=== PATIENT | male | born 1960 | race African-American/Black ===

== ENCOUNTER 2017-04-24 06:54 | Inpatient (IN) | payer BC ==
--- NOTE | 2017-04-15 19:40 | HP ---
HISTORY AND PHYSICAL: DATE OF SURGERY: 04/24/17 DATE OF OFFICE VISIT: 04/14/17 SURGEON: Dr. Mayela Xie * (DICTATED BY EMILY MATA) PROCEDURE: Right total knee arthroplasty. CHIEF COMPLAINT: Right knee pain. HISTORY OF PRESENT ILLNESS: Mr. Freeman is a 56-year-old gentleman with complaints of right knee pain secondary to severe degenerative osteoarthritis. He has failed conservative management and has elected to proceed with a right total knee arthroplasty. The procedure is scheduled for 04/24/[address] Xie. PAST MEDICAL HISTORY: Hypertension, hyperlipidemia, diabetes, coronary artery disease, history of an LA and chronic kidney disease. PAST SURGICAL HISTORY: Stent placement in 2014, right knee surgery x2, left knee surgery, right elbow surgery, bilateral shoulder arthroscopies. CURRENT MEDICATIONS: 1. Hydrochlorothiazide 25 mg daily. 2. Lisinopril 20 mg daily. 3. Cialis 20 mg as needed. 4. Cosopt. 5. Glucotrol 10 mg twice daily. 6. Lantus 100 units 40 units every evening. 7. Percocet 10/325 as needed. 8. Aspirin 81 mg daily. 9. Metoprolol 50 mg daily. 10. Nitrostat. 11. Atorvastatin. 12. Calcium 80 mg daily. ALLERGIES: No known drug allergies. FAMILY HISTORY: Heart disease, diabetes, cancer and hypertension. SOCIAL HISTORY: This is a 56-year-old gentleman. He lives with his . He denies the use of drugs. He does not smoke and denies the use of alcohol. REVIEW OF SYSTEMS: A complete 14-point review of systems was reviewed with the patient. It is positive for diabetes. He denies history of DVT, PE, hepatitis C, or HIV. PHYSICAL EXAMINATION GENERAL: He is well developed, well nourished, in no acute distress. VITAL SIGNS: He stands 6 feet 2 inches tall, weighs 250 pounds. His blood pressure is 140/90. His heart rate is 64. HEENT: Normocephalic, atraumatic. NECK: Supple. No palpable lymph nodes. CARDIO: Regular rate and rhythm. Strong S1 and S2. ABDOMEN: Soft, nontender, nondistended. NEUROLOGIC: Alert and oriented x3. Cranial nerves II through XII are intact. MUSCULOSKELETAL: Right lower extremity, the skin is intact. There are no open wounds or abrasions. There is a moderate joint effusion tenderness over the medial and lateral joint lines. 10 to 120 degrees of flexion, 20 degrees of valgus deformities. 2+ dorsalis pedis pulses and intact sensation in the lower extremity. Muscular strength is intact at 5/5. ASSESSMENT AND PLAN: Mr. Freeman is a 56-year-old gentleman with severe degenerative osteoarthritis of the right knee joint. He has failed conservative management and has elected to proceed with the right total knee arthroplasty which is scheduled for 04/24/[address] Xie discussed the risks and benefits of the surgery at today's visit and all of his questions were answered. Coumadin, Colace and Percocet were sent to his pharmacy for postoperative pain control and DVT prophylaxis. EMILY MATA [id number]/[facility] #: [id number] MTDD
[~2017-04-24 06:54] MED LIST: Buffered Lidocaine 0.9% SYRIN* 5 ML/SYR SYRINGE INTRADERM ONE; DiMENhydriNATE IV* 50 MG/ML VIAL IV PUSH PRN; Famotidine IV* 10 MG/ML 2 ML (20 mg) IV ONE; Metoclopramide TAB* 10 MG PO ONE; Morphine INJ* 2 MG/ML 1 ML CARPUJECT IV PRN; PROCHLORPERAZINE INJ 5 MG/ML 2 ML VIAL IV PRN; Scopolamine 1.5 mg* PATCH TRANSDERM PRN; fentaNYL* 50 MCG/ML 2 ML VIAL (100 MCG VIAL) IV PRN; oxyCODONE/Acetamin 5/325 MG* TAB PO PRN
[2017-04-24] MEDS ORDERED: ceFAZolin 2 GM PREMIX (*) 2 GM/50 ML BAG IVPB ONE (07:10)
[2017-04-24] MEDS ORDERED: Famotidine IV* 10 MG/ML 2 ML (20 mg) ONE (07:10)
[2017-04-24] MEDS ORDERED: Buffered Lidocaine 0.9% SYRIN* 5 ML/SYR SYRINGE ONE (07:10)
[2017-04-24] MEDS ORDERED: Midazolam* 1 MG/ML 10 ML VIAL (10 MG) ONE (07:26)
[2017-04-24] MEDS ORDERED: fentaNYL* 50 MCG/ML 2 ML VIAL (100 MCG VIAL) ONE (07:26)
[2017-04-24] MEDS ORDERED: KETAMINE HCL* 50 MG/ML 10 ML VIAL ONE (07:26)
[2017-04-24] MEDS ORDERED: Bupivacaine 0.5% SDV PF* 30 ML VIAL ONE ×2 (07:53→11:04)
[2017-04-24] MEDS ORDERED: Acetaminophen TAB* 325 MG PO PRN (08:16)
[2017-04-24] MEDS ORDERED: Polyethylene Glycol 3350* 17 GM PACKET PO PRN (08:16)
[2017-04-24] MEDS ORDERED: Magnesium Hydroxide LIQ* 30 ML UDC PO PRN (08:16)
[2017-04-24] MEDS ORDERED: Bisacodyl SUPP* 10 MG SUPP PR PRN (08:16)
[2017-04-24] MEDS ORDERED: glipiZIDE TAB* 5 MG PO SCH (09:00)
[2017-04-24] MEDS ORDERED: Dorzolamide/Timolol OPTH (NF) 10 ML BOT BOTH EYES SCH (09:00)
[2017-04-24] MEDS ORDERED: LISINOPRIL PO SCH (09:00)
[2017-04-24] MEDS ORDERED: Hydrochlorothiazide TAB* 25 MG PO SCH (09:00)
[2017-04-24] MEDS ORDERED: ceFAZolin 1 GM VIAL(*) 1 GM in NS 0.9% 50 ML* 50 ML IVPB SCH (09:00)
[2017-04-24] MEDS ORDERED: Brimonidine P 0.15%(NF) OPH SOL 5 ML BTL BOTH EYES SCH (09:00)
[2017-04-24] MEDS ORDERED: EPHEDrine (Pressors)* 50 MG/ML VIAL IV PUSH PRN (09:05)
[2017-04-24] MEDS ORDERED: Ondansetron INJ* 2 MG/ML VIAL IV PRN ×2 (09:05→12:54)
[2017-04-24] MEDS ORDERED: oxyCODONE/Acetamin 5/325 MG* TAB PO PRN ×2 (09:05→12:54)
[2017-04-24] MEDS ORDERED: PROCHLORPERAZINE INJ 5 MG/ML 2 ML VIAL IV PRN ×2 (09:05→12:54)
[2017-04-24] MEDS ORDERED: Nalbuphine* 20 MG/ML 1 ML VIAL IV PRN ×2 (09:05→12:54)
[2017-04-24] MEDS ORDERED: diPHENhydraMINE IV* 50 MG/ML 1 ml VIAL (BENADRYL) IV PRN ×2 (09:05→12:54)
[2017-04-24] MEDS ORDERED: Naloxone* 2 MG in NS 0.9% 250 ML* 250 ML IV PRN (09:05)
[2017-04-24] MEDS ORDERED: Ropivacaine 0.2% EPIDURAL* 200 MG/100 ML BAG EPIDURAL ONE (09:28)
[2017-04-24] MEDS ORDERED: Ropivacaine 0.2% EPIDURAL* 200 MG/100 ML BAG EPIDURAL SCH (10:00)
[2017-04-24] MEDS ORDERED: Flumazenil* 0.1 MG/ML 5 ML MDV ONE (11:03)
[2017-04-24] MEDS ORDERED: Lidocaine 2% PF* 10 ML AMP ONE (11:04)
[2017-04-24] MEDS ORDERED: Propofol* 500 MG/50 ML BTL ONE (11:04)
[2017-04-24] MEDS ORDERED: Phenylephrine INJ* 10 MG/ML 1 ML VIAL (10 MG) ONE (11:04)
[2017-04-24] MEDS ORDERED: Dextrose 50% Syringe 50 ML* 25 GM/50 ML SYRINGE IV PUSH PRN (11:35)
[2017-04-24] MEDS ORDERED: Morphine PF AMP (0.5MG/ML)* 5 MG/10 ML AMP ONE (12:07)
--- NOTE | 2017-04-24 12:36 | RAD ---
INDICATION: Status post right knee arthroplasty COMPARISON: Preoperative right knee radiograph February 20, 2017 TECHNIQUE: 2 view radiograph of the right knee. FINDINGS: AP and lateral views show the right knee prosthesis to be anatomically aligned. There is no evidence of periprosthetic fracture. Expected post surgical changes include subcutaneous care and a small joint effusion. IMPRESSION: Anatomic alignment of recently installed right knee prosthesis.
[2017-04-24] MEDS ORDERED: Naloxone* 0.4 MG/ML 1 ML VIAL IV PRN (12:54)
[2017-04-24] MEDS: Docusate CAP* 100 MG PO SCH ×2 (14:30→21:42)
[2017-04-24] MEDS: Metoprolol Succinate XL TAB* 25 MG PO SCH (14:31)
[2017-04-24] MEDS ORDERED: Warfarin TAB(*) 6 MG PO ONE (17:00)
[2017-04-24] MEDS: ceFAZolin 1 GM VIAL(*) 1 GM in NS 0.9% 50 ML* 50 ML IVPB SCH (17:42)
[2017-04-24] MEDS: Atorvastatin* 80 MG TAB PO SCH (17:45)
[2017-04-24] MEDS: Insulin LISPRO* 1 UNITS UNIT SUBCUT SCH (17:48)
[2017-04-24] MEDS: Latanoprost 0.005%* 2.5 ml BTL BOTH EYES SCH (19:46)
--- NOTE | 2017-04-24 19:46 | CONS ---
CC: Dr. Ford; Dr. Xie * CONSULTATION REPORT: DATE OF CONSULT: 04/24/17 PRIMARY CARE PROVIDER: Dr. Ford. REQUESTING PHYSICIAN FOR THE CONSULTATION: Dr. Xie. MY ATTENDING PHYSICIAN WHILE IN THE HOSPITAL: Clifford Arthur MD (report dictated by Raciel Ortiz NP). REASON FOR MEDICAL CONSULTATION: Evaluation and medical management of comorbid medical conditions. HISTORY OF PRESENT ILLNESS: Mr. Freeman is a 56-year-old male patient who presents to Dr. Xie's service today for a total knee replacement. I will refer you to the H and P for further details. In short, Mr. Freeman is a 56-year -old male patient. He has a history of hypertension, hyperlipidemia, diabetes, CAD, history of MT, and history of CKD, who has been dealing with knee pain for some time, sought care with Dr. Xie, failed conservative therapy. It was felt that he would be appropriate for a total knee replacement. The patient underwent perioperative risk stratification with his PCP and Cardiology and he underwent the procedure today. Because of his medical complexity, we were asked to evaluate in consult to help with medical management. He denies having any chest pain, denies having any shortness of breath, denies having any abdominal pain. He was evaluated in the PACU. He says he is feeling well. He says he cannot move his legs just yet. He did have a Duramorph spinal and he has an epidural now, but he says his pain is well controlled and he says he is feeling well. PAST MEDICAL HISTORY: Significant for: 1. Hypertension. 2. Hyperlipidemia. 3. Diabetes. 4. CAD. 5. History of MT. 6. CKD. PAST SURGICAL HISTORY: 1. He has had heart catheterization. Looks like he has had 2 of these. 2. He just had a right total knee replacement done today. He has had right knee arthroscopies and left knee arthroscopy. He has had right elbow surgery and he has had bilateral shoulder arthroscopies. HOME MEDICATIONS: According to his preop list include: 1. Percocet 1 tablet p.o. t.i.d. as needed. 2. Glipizide 10 mg p.o. b.i.d. 3. Toprol-XL 50 mg in the morning. 4. Lisinopril 20 mg daily. 5. Latanoprost 1 drop both eyes at bedtime. 6. Insulin lantus 50 units subcu at bedtime. 7. Hydrochlorothiazide 25 mg p.o. daily. 8. Cosopt 1 drop both eyes b.i.d. 9. Alphagan 1 drop both eyes b.i.d. 10. Lipitor 80 mg daily at bedtime. 11. Aspirin 81 mg daily. ALLERGIES TO MEDICATIONS: No known drug allergies. FAMILY HISTORY: Mother had a history of hypertension, diabetes and coronary artery disease. Father, history was reviewed. The father does not have any history of heart disease or diabetes. Essentially noncontributory. SOCIAL HISTORY: He does not smoke, does not drink. Surrogate decision maker is his . He is . REVIEW OF SYSTEMS: There is no documented fever. He denied having any significant weight change. There was no double vision. There is no ear discharge. He denied having any rhinorrhea. No sore throat. No thyroid enlargement. Denied having any chest pain. There was no orthopnea. There is no nocturnal dyspnea. He denies having any nausea. There is no dysuria. Denies having any frequency. No seizure. No loss of consciousness. No pruritus and no skin ulcerations. Review of 14 systems completed, all others negative. PHYSICAL EXAM: Vital Signs: Blood pressure 147/89, pulse 52, respirations 14, O2 sat 100%, temperature 98.4. General: At this time, Mr. Freeman is a 56-year -old male patient. He is sitting in the PACU bed. He does not appear to be in any acute distress. HEENT: Head is atraumatic, normocephalic. Eyes: EOMs are intact. Sclerae anicteric, not pale. Neck: Supple. Throat: Oral mucosa appears to be moist. No oropharyngeal erythema. Heart: Sounds S1 and S2. He is a little bradycardic in the 50s. No murmurs, rubs or gallops. Lungs: Clear to auscultation bilaterally. No wheezes, rales or rhonchi. Abdomen: Soft, flat, nontender. Hypoactive bowel sounds. Extremities: Pulses were 2+ throughout. Cannot move the lower extremities given the recent Duramorph spinal , but CSM checks are intact. He is moving the upper extremities with 5/5 strength. Neurologically, he is awake, alert, oriented x3. Tongue midline. Hostess Cashier were equal. No gross focal deficits. Skin: Intact with the exception he does have an incision to the right knee which is covered with an Kiko dressing. It is clean, dry and intact. No drain was noted. DIAGNOSTIC STUDIES/LAB DATA: Preop, WBC of 5.8, RBC of 4.67, hemoglobin of 12.6 , hematocrit of 39, platelet count 181,000. Sodium 136, potassium 4.5, chloride 102, bicarb 30, BUN 27, his creatinine is 1.37 that is right near his baseline. His glucose is 152. His A1c was 7.6 checked 2 years ago in our system. AST was 30, ALT 29. Urine preop negative. He did have a preop EKG which showed a sinus rhythm with a first-degree AV block, rate of 61. He did have T-wave inversions in leads I, II and aVL and also inversions in V4, 5, 6 and in reviewing the previous EKG, these T-wave inversions appear to be similar. He did have a chest x-ray preop, showed no evidence of active cardiopulmonary disease. Old medical records were reviewed. ASSESSMENT AND PLAN: Mr. Freeman is a 56-year-old male patient with multiple medical problems, coming to Orthopedic Surgery today for an elective total knee replacement. We were asked to evaluate. Recommendations at this point are: 1. Status post total knee replacement. I will defer the management to Dr. Xie and her team. 2. Hypertension. I would continue his beta josie. We will hold his lisinopril and hydrochlorothiazide. When the epidural is removed, consider restarting these. 3. Hyperlipidemia. Continue statin therapy. 4. Diabetes. I will put him on Lantus and lispro sliding scale. We will follow. His postop blood sugar was in the 70s, but he took a full dose of insulin last night, so we will monitor this. 5. Coronary artery disease. I would recommend getting him back on the aspirin as soon as it is deemed safe by Orthopedics. He is on the beta-josie and the statin. We will continue these medications. 6. History of chronic kidney disease. We will follow the creatinine. He is getting a BMP tomorrow. 7. DVT prophylaxis. I will defer to the primary team. 8. Fluids, nutrition. I would recommend a consistent carb diet. 9. Code status. Full code. TIME SPENT: Time spent on the consult was 60 minutes, greater than half the time was spent face to face with the patient obtaining my history and physical, the other half of the time was spent on going over the plan of care with the patient and implementing the plan of care. I did discuss the plan of care with my attending, Dr. Arthur, he is in agreement. RACIEL ORTIZ, BOTTLE LABELER [id number]/[facility] #: [id number] BRIGITTE
--- NOTE | 2017-04-24 20:46 | RAD ---
INDICATION: Fever COMPARISON: April 11, 2017 TECHNIQUE: An AP portable view obtained at 2032 hours is submitted. FINDINGS: Bones/Soft Tissues: There are no acute bony findings. Cardiomediastinal: The cardiomediastinal silhouette is normal. Lungs: There are no infiltrates. There are chronic interstitial changes. Pleura: There are no pleural effusions. Other: None IMPRESSION: NO ACTIVE DISEASE.
[2017-04-24] MEDS: Insulin GLARGINE(*) 1 UNITS UNIT SUBCUT SCH (21:44)
[2017-04-24] MEDS: PTO: Brimonidine P 0.15%(NF) OPH SOL 5 ML BTL BOTH EYES SCH (21:47)
[2017-04-24] MEDS: PTO: Dorzolamide/Timolol OPTH (NF) 10 ML BOT BOTH EYES SCH (21:47)
[2017-04-24 22:48] LABS: Urine Bacteria Absent (Absent); Urine Bilirubin Negative (Negative); Urine Glucose Negative (Negative); Urine Nitrite Negative (Negative)
[2017-04-25] MEDS: ceFAZolin 1 GM VIAL(*) 1 GM in NS 0.9% 50 ML* 50 ML IVPB SCH ×2 (00:50→08:00)
[2017-04-25] MEDS ORDERED: oxyCODONE/Acetamin 5/325 MG* TAB PO PRN (05:15)
[2017-04-25] MEDS: oxyCODONE/Acetamin 5/325 MG* TAB PO PRN ×5 (05:18→23:30)
[2017-04-25 05:39] LABS: Hematocrit 33 % (42-52); Hemoglobin 10.8 g/dl (14.0-18.0)
[2017-04-25 05:45] LABS: BUN/Creatinine Ratio 14.9 (8-20); Calcium 8.3 mg/dL (8.6-10.3); EGFR African American 80.1 (>60); EGFR Non-African American 62.3 (>60); Potassium 3.7 mmol/L (3.5-5.0)
[2017-04-25] MEDS ORDERED: Morphine INJ* 2 MG/ML 1 ML SYRINGE (TWO MG - NEW SYRINGE VERSION) IV PRN (05:55)
[2017-04-25] MEDS ORDERED: Morphine INJ* 2 MG/ML 1 ML CARPUJECT IV PRN (06:00)
[2017-04-25] MEDS ORDERED: oxyCODONE TAB* 5 MG TAB PO PRN (06:00)
[2017-04-25] MEDS ORDERED: Ondansetron INJ* 2 MG/ML VIAL IV PRN (06:00)
[2017-04-25] MEDS ORDERED: diPHENhydraMINE IV* 50 MG/ML 1 ml VIAL (BENADRYL) IV PRN (06:00)
[2017-04-25] MEDS ORDERED: Ondansetron TAB* 4 MG PO PRN (06:00)
[2017-04-25] MEDS: HYDROmorphone INJ* 1 MG/ML CARPUJECT SYRINGE IV PRN ×6 (06:43→23:31)
[2017-04-25] MEDS: Insulin LISPRO* 1 UNITS UNIT SUBCUT SCH ×3 (07:38→17:29)
[2017-04-25] MEDS: Metoprolol Succinate XL TAB* 25 MG PO SCH (07:56)
[2017-04-25] MEDS: Docusate CAP* 100 MG PO SCH ×2 (07:57→21:28)
[2017-04-25] MEDS: Morphine TAB Extended Release (*) 15 MG TAB.ER PO SCH ×2 (07:57→22:09)
[2017-04-25] MEDS: PTO: Brimonidine P 0.15%(NF) OPH SOL 5 ML BTL BOTH EYES SCH ×2 (07:58→23:58)
[2017-04-25] MEDS: PTO: Dorzolamide/Timolol OPTH (NF) 10 ML BOT BOTH EYES SCH ×2 (08:00→23:58)
[2017-04-25] MEDS: Lisinopril TAB* 10 MG PO SCH (08:27)
[2017-04-25] MEDS: Cyclobenzaprine TAB* 10 MG PO PRN ×2 (08:27→16:31)
[2017-04-25] MEDS: Enoxaparin(*) 40 MG/0.4 ML SYR SUBCUT SCH (09:25)
--- NOTE | 2017-04-25 12:01 | PN ---
Progress Note - Progress Note Date of Service: 04/25/17 SOAP: Subjective: 56 y/o male s/p R TKA 04/[address] Xie. Patient sleeping in bed, no complaints, no questions. VSS afebrile. Objective: General= Well appearing, NAD, tired appearing MSK- Surgical dressing intact, no drain, no odor, drainage, + DF/PF b/l, sensation intact to light touch b/l LEs, no edema b/l, PT 2+ b/l Vital Signs Temp 98.3 F 04/25/17 07:40 Pulse 75 04/25/17 07:40 Resp 16 04/25/17 11:34 BP 170/77 04/25/17 07:40 Pulse Ox 99 04/25/17 07:40 Intake & Output 04/24/17 04/25/17 04/25/17 18:59 06:59 18:59 Intake Total 3100 1900 500 Output Total 3850 1875 375 Balance -750 25 125 Weight 115.666 kg Intake: IV Fluids 2500 980 LR 2450 980 NS 50ML, Cefazolin 2G 50 IVPB 50 cefazolin 50 Oral 600 870 500 Output: Urine 1500 375 [place] 3850 375 Assessment: Stable 56 y/o male s/p R TKA 04/[address] Xie. Plan: - Pain control- ER medication added today, continue to have flexeril, oxycodone PRN with IV for breakthrough. Patient resting well, pain minimal on examination. - DVT prophylaxis- coumadin 6mg tonight, continue lovenox. - Continue PT/ OT over weekend - Likely D/C to home over weekend Active Medications Generic Name Dose Route Start Last Admin Trade Name Freq PRN Reason Stop Dose Admin Acetaminophen 650 mg 04/24/17 08:16 04/24/17 20:32 Tylenol Tab* PO 650 mg Q4H PRN Administration PAIN OR TEMPERATURE Atorvastatin Calcium 80 mg 04/24/17 18:00 04/24/17 17:45 Lipitor* PO 80 mg QPM ADDIS Administration Bisacodyl 10 mg 04/24/17 08:16 Dulcolax Supp* AL DAILY PRN constipation Brimonidine Tartrate 1 drop 04/24/17 14:35 04/25/17 07:58 Alphagan P 0.15%(Nf) BOTH EYES 1 drop BID ADDIS Administration Cyclobenzaprine HCl 10 mg 04/25/17 07:34 04/25/17 08:27 Flexeril Tab* PO 10 mg TID PRN Administration SPASMS - MUSCLE Dextrose 12.5 gm 04/24/17 11:35 D50w Syringe 50 Ml* IV PUSH .FOR FS < 60 - SS PRN FS < 60 Diphenhydramine HCl 12.5 mg 04/25/17 06:00 Benadryl Iv* IV Q6H PRN PRURITIS Docusate Sodium 100 mg 04/24/17 09:00 04/25/17 07:57 Colace Cap* PO 100 mg BID ADDIS Administration Dorzolamide/Timolol 1 drop 04/24/17 21:00 04/25/17 08:00 Cosopt (Nf) BOTH EYES 1 drop BID ADDIS Administration Protocol Enoxaparin Sodium 40 mg 04/25/17 10:00 04/25/17 09:25 Lovenox(*) SUBCUT 40 mg Q24H ADDIS Administration Hydromorphone HCl 1 mg 04/25/17 06:38 04/25/17 10:10 Dilaudid Injic* IV 1 mg Q2H PRN Administration PAIN Lactated Ringer's 1,000 mls @ 100 mls/hr 04/24/17 09:00 04/25/17 00:45 Lactated Ringers 1000 Ml Bag* IV 100 mls/hr PER RATE ADDIS Administration Insulin Glargine 50 units 04/24/17 21:00 04/24/17 21:44 Lantus(*) SUBCUT 50 units BEDTIME [facility] Administration Insulin Human Lispro 0 units 04/24/17 16:30 04/25/17 07:38 Humalog* SUBCUT Not Given AC [facility] Protocol Lactulose 30 ml 04/24/17 08:16 Lactulose* PO Q6H PRN constipation Latanoprost 1 drop 04/24/17 18:00 04/24/17 19:46 Xalatan 0.005%* BOTH EYES Not Given QPM ADDIS Lisinopril 20 mg 04/25/17 09:00 04/25/17 08:27 Prinivil Tab* PO 20 mg DAILY ADDIS Administration Magnesium Hydroxide 30 ml 04/24/17 08:16 Milk Of Magnesia Liq* PO Q6H PRN constipation Metoprolol Succinate 50 mg 04/24/17 09:00 04/25/17 07:56 Toprol Xl Tab* PO 50 mg QAM ADDIS Administration Morphine Sulfate 15 mg 04/25/17 09:00 04/25/17 07:57 Ms Contin(*) PO 15 mg BID ADDIS Administration Ondansetron HCl 4 mg 04/25/17 06:00 Zofran Inj* IV Q6H PRN nausea Ondansetron HCl 4 mg 04/25/17 06:00 Zofran Tab* PO Q6H PRN NAUSEA Oxycodone HCl 10 mg 04/25/17 06:00 Roxycodone Tab* PO Q4H PRN SEVERE PAIN Oxycodone/Acetaminophen 1 tab 04/25/17 05:15 Percocet 5/325 Tab* PO Q4H PRN PAIN Oxycodone/Acetaminophen 2 tab 04/25/17 05:15 04/25/17 09:24 Percocet 5/325 Tab* PO 2 tab Q4H PRN Administration PAIN Pharmacy Profile Note 0 note 04/24/17 17:00 04/24/17 17:59 Coumadin Daily Reminder* FOLLOW UP 1 note 1700 ADDIS Administration Polyethylene Glycol/Electrolytes 17 gm 04/24/17 08:16 Miralax* PO DAILY PRN Constipation
--- NOTE | 2017-04-25 13:38 | OP ---
OPERATIVE REPORT: DATE OF OPERATION: 04/24/17 DATE OF : 62 ATTENDING SURGEON: Mayela Xie MD. EMERY GRINDER: EMILY Milligan. Ms. Melgoza did help throughout the procedure with preparation of the leg, wound retraction, manipula tion of the knee and wound closure. ANESTHESIOLOGIST: Dr. Alaniz. ANESTHESIA: Spinal. 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 POST-OPERATIVE DIAGNOSIS: Severe endstage posttraumatic arthritis of the right knee joint with valgu s deformity. OPERATIVE PROCEDURE: Right total knee arthroplasty. HARDWARE USED: This is cemented Perez [employer]hew total knee arthroplasty hardware. For the femur, a size 6 right posterior stabilized Oxinium component. For the tibia, a size 5 right tibial baseplate Gisell II. For the insert, a 9-mm posterior stabilized articular insert size 5/6 and for the patell a a size 35, 3-peg hole poly patella. TOURNIQUET TIME: 63 minutes. ESTIMATED BLOOD LOSS: 200 cc. COMPLICATIONS: None. SPECIMEN: Multiple cultures swabs sent for cultures and sensitivities. Bone and cartilage from the right knee joint sent to pathology. BRIEF HISTORY/INDICATIONS: Mr. Freeman is a 36-year-old gentleman with years of increasingly severe r ight knee pain and valgus deformity. He has had several surgeries in the distant past for sports rel ated injury. He developed posttraumatic arthritis, which is quite severe. Radiograph showed lateral bone-on- bone contact. He developed approximately 15 degrees valgus deformity and knee stiffness wi th pain. He failed conservative treatment with antiinflammatories, pain medication, intraarticular i njections, and physical therapy. Due to decreased quality of life and continued pain, he elected to have right total knee arthroplasty. Informed consent was obtained from the patient. He understood t he risks of the procedure included but were not limited to bleeding, infection, damage to nearby stru ctures, continued pain, need for further surgery, intraoperative fracture, nerve palsy, hardware fail ure or loosening, knee stiffness, loss of motion, stroke, heart attack, blood clot, and . He wi shed to proceed. INTRAOPERATIVE FINDINGS: Intraoperatively the patient was noted to have 15 degree of valgus deformit y and knee range motion from 10 to 120 degrees of flexion. This was corrected to full extension, to 130 degrees of flexion, and 5-degree valgus by the end of the case. He was noted to have severe ends tage arthritis. He did have some lateral femoral condylar hypoplasia. DESCRIPTION OF PROCEDURE: Mr. Freeman was identified in the preanesthesia unit. His right lower extre mity was marked as the correct operative site. Informed consent was signed and placed in the chart. The patient was taken to the operating room, placed under spinal anesthesia. A Machado catheter was p laced. Tourniquet was placed on the right thigh. The right lower extremity was prepped and draped i n the usual sterile fashion. Preoperative timeout was made to correctly identify the patient, side, and site. Appropriate perioperative antibiotics was given within 1 hour of incision. Tourniquet was inflated and total tourniquet time for this procedure was 63 minutes. A 15-cm midline skin incision was made with a 10 blade and carried down to the extensor mechanism. The patient's nolasco perficial patellar bone calcification or enthesophyte was carefully removed using a rongeur. A new 1 0 blade was used to make a standard medial parapatellar arthrotomy. The patella was subluxed lateral ly. Electrocautery was used to elevate the soft tissue off the superomedial tibia. The knee was fle xed up. Anterior horn of the lateral meniscus and ACL was sharply released. A drill was used to ent er the distal femur. Intramedullary distal femoral cutting guide was pinned on the distal femur. Os cillating saw was used to make the appropriate distal femoral cut. Next, the external rotation guide was pinned on the distal femur and the distal femur was sized to size 6. A size 6 multicutting jig was pinned on the distal femur. Appropriate 4 chamfer cuts were made with an oscillating saw. The b henna fragments were carefully removed. PCL was completely released. Extramedullary tibial cutting guide was pinned on the proximal tibia. Oscillating saw was used to ma ke the proximal tibial cut perpendicular to the mechanical axis of the tibia. The bony fragment was carefully removed. The knee was brought out into full extension. A spacer block had good fit with m edial and lateral ligamentous balancing satisfactorily. Flexion and extension gaps were well balance d. The knee was flexed up. Lamina preschool teacher aide was placed both medially and laterally. Any remaining menisc us was carefully removed from the medial and lateral compartments. Curved osteotome was used to tiki beba the osteophytes along the posterior femur. Tibial tray and drop mariana were placed to ensure once a gain a satisfactory tibial cut. This was confirmed. A size 6 right femoral trial was impacted on to the distal femur and had excellent fit. The box for the posterior stabilized implant was prepared u sing a reamer and box cut osteotome. A size 6 tibial tray trial and 9 mm insert trial was chosen and placed. The knee was taken through a range of motion. The knee has full extension to 130 degrees o f flexion. There was good patellofemoral tracking. The patella was everted; 9 mm of patellar bone and cartilage were carefully removed with an oscillati ng saw. Patella was sized to a size 35. Three peg holes were drilled through the size 35 guide. A trial 35 patella was placed and the knee was taken through range of motion. The knee had good patell ofemoral tracking. All trials were carefully removed. The tibia was subluxed anteriorly and sized to a size 5. Proxima l tibia was prepared using a size 5 keel punch. All bony cut surfaces were copiously irrigated with sterile saline and dried. Final implants were cemented into place starting with the tibia, followed by the femur and last the patella. A 9 mm insert trial was placed while the knee was brought into fu ll extension. The tourniquet was turned down at 63 minutes. The knee was copiously irrigated with s terile saline. Electrocautery was used to obtain meticulous hemostasis. Once the cement had fully cured, the insert trial was removed. Any excess cement was carefully remov ed from around the capsule and implants. Final implant chosen was a 9 mm posterior stabilizer articu lar insert size 5/6. This was locked into position on the tibial tray. Stability of the insert was checked and rechecked and noted to be stable. The knee was once again copiously irrigated with sterile saline. The extensor mechanism was closed u sing interrupted #1 Vicryl's. The rest of the incision was closed in a layered fashion using 0 and 2 -0 Vicryl's. Skin was closed using running 3-0 nylon suture. Sterile Xeroform, 4x4s, and Webril wer e placed over the incision. Kiko wrap and cold pack were placed over this. The patient's anesthesia was reversed without difficulty. He was taken to the PACU in stable conditi on. Intended weightbearing will be weightbearing as tolerated. Intended DVT prophylaxis will be Coum marian with a Lovenox bridge. [id number]/[facility] #: [id number]
--- NOTE | 2017-04-25 14:13 | PN ---
Subjective Date of Service: 04/25/17 Interval History: Patient says pain is 9/10, but is in no acute distress on exam. No other complaints, urinating without difficulty, passing flatus without BM. No CP, SOB , N/V, F/C, abdominal pain, Dysuria, dizziness, or other pain. Family History: Unchanged from Admission Social History: Unchanged from Admission Past Medical History: Unchanged from Admission Objective Active Medications: Acetaminophen (Tylenol Tab*) 650 mg PO Q4H PRN PRN Reason: PAIN OR TEMPERATURE Last Admin: 04/24/17 20:32 Dose: 650 mg Atorvastatin Calcium (Lipitor*) 80 mg PO QPM [facility] Last Admin: 04/24/17 17:45 Dose: 80 mg Bisacodyl (Dulcolax Supp*) 10 mg [place] DAILY PRN PRN Reason: constipation Brimonidine Tartrate (Alphagan P 0.15%(Nf)) 1 drop BOTH EYES BID [facility] Last Admin: 04/25/17 07:58 Dose: 1 drop Cyclobenzaprine HCl (Flexeril Tab*) 10 mg PO TID PRN PRN Reason: SPASMS - MUSCLE Last Admin: 04/25/17 08:27 Dose: 10 mg Dextrose (D50w Syringe 50 Ml*) 12.5 gm IV PUSH .FOR FS < 60 - SS PRN PRN Reason: FS < 60 Diphenhydramine HCl (Benadryl Iv*) 12.5 mg IV Q6H PRN PRN Reason: PRURITIS Docusate Sodium (Colace Cap*) 100 mg PO BID [facility] Last Admin: 04/25/17 07:57 Dose: 100 mg Dorzolamide/Timolol (Cosopt (Nf)) 1 drop BOTH EYES BID [facility] PRN Reason: Protocol Last Admin: 04/25/17 08:00 Dose: 1 drop Enoxaparin Sodium (Lovenox(*)) 40 mg SUBCUT Q24H [facility] Last Admin: 04/25/17 09:25 Dose: 40 mg Hydromorphone HCl (Dilaudid Injic*) 1 mg IV Q2H PRN PRN Reason: PAIN Last Admin: 04/25/17 10:10 Dose: 1 mg Lactated Ringer's (Lactated Ringers 1000 Ml Bag*) 1,000 mls @ 100 mls/hr IV PER RATE [facility] Last Admin: 04/25/17 00:45 Dose: 100 mls/hr Insulin Glargine (Lantus(*)) 50 units SUBCUT BEDTIME [facility] Last Admin: 04/24/17 21:44 Dose: 50 units Insulin Human Lispro (Humalog*) 0 units SUBCUT AC [facility] PRN Reason: Protocol Last Admin: 04/25/17 12:33 Dose: 2 units Lactulose (Lactulose*) 30 ml PO Q6H PRN PRN Reason: constipation Latanoprost (Xalatan 0.005%*) 1 drop BOTH EYES QPM [facility] Last Admin: 04/24/17 19:46 Dose: Not Given Lisinopril (Prinivil Tab*) 20 mg PO DAILY [facility] Last Admin: 04/25/17 08:27 Dose: 20 mg Magnesium Hydroxide (Milk Of Magnalex Liq*) 30 ml PO Q6H PRN PRN Reason: constipation Metoprolol Succinate (Toprol Xl Tab*) 50 mg PO QAM [facility] Last Admin: 04/25/17 07:56 Dose: 50 mg Morphine Sulfate (Ms Contin(*)) 15 mg PO BID [facility] Last Admin: 04/25/17 07:57 Dose: 15 mg Ondansetron HCl (Zofran Inj*) 4 mg IV Q6H PRN PRN Reason: nausea Ondansetron HCl (Zofran Tab*) 4 mg PO Q6H PRN PRN Reason: NAUSEA Oxycodone HCl (Roxycodone Tab*) 10 mg PO Q4H PRN PRN Reason: SEVERE PAIN Oxycodone/Acetaminophen (Percocet 5/325 Tab*) 1 tab PO Q4H PRN PRN Reason: PAIN Oxycodone/Acetaminophen (Percocet 5/325 Tab*) 2 tab PO Q4H PRN PRN Reason: PAIN Last Admin: 04/25/17 09:24 Dose: 2 tab Pharmacy Profile Note (Coumadin Daily Reminder*) 0 note FOLLOW UP 1700 [facility] Last Admin: 04/24/17 17:59 Dose: 1 note Polyethylene Glycol/Electrolytes (Miralax*) 17 gm PO DAILY PRN PRN Reason: Constipation Warfarin Sodium (Coumadin Tab(*)) 6 mg PO ONCE@1700 ONE PRN Reason: Protocol Stop: 04/25/17 17:01 Vital Signs 1104/24/17 04/24/17 14:12 15:34 16:29 Temperature 98.3 F 98.6 F 98.5 F Pulse Rate 77 66 74 Respiratory 14 16 16 Rate Blood Pressure 110/67 167/70 164/55 (mmHg) O2 Sat by Pulse 100 100 100 Oximetry 04/24/17 04/24/17 04/24/17 18:01 18:10 19:57 Temperature 100.3 F 102.6 F Pulse Rate 81 85 Respiratory 18 17 16 Rate Blood Pressure 158/71 145/59 (mmHg) O2 Sat by Pulse 100 100 Oximetry 04/24/17 04/24/17 04/24/17 20:00 20:16 20:56 Temperature 102.6 F 100.3 F Pulse Rate 85 77 Respiratory 17 16 16 Rate Blood Pressure 145/59 157/68 (mmHg) O2 Sat by Pulse 100 97 Oximetry 04/24/17 04/24/17 04/24/17 21:50 22:00 22:55 Temperature 100.6 F Pulse Rate Respiratory 16 17 Rate Blood Pressure (mmHg) O2 Sat by Pulse Oximetry 04/24/17 04/25/17 04/25/17 23:47 00:00 01:00 Temperature 99.4 F Pulse Rate 68 Respiratory 20 16 20 Rate Blood Pressure 129/60 (mmHg) O2 Sat by Pulse 98 Oximetry 04/25/17 04/25/17 04/25/17 02:03 03:23 03:59 Temperature 99.4 F Pulse Rate 85 Respiratory 20 20 20 Rate Blood Pressure 180/65 (mmHg) O2 Sat by Pulse 99 Oximetry 04/25/17 04/25/17 04/25/17 04:00 04:08 05:06 Temperature Pulse Rate 83 Respiratory 16 20 Rate Blood Pressure 164/70 (mmHg) O2 Sat by Pulse Oximetry 04/25/17 04/25/17 04/25/17 05:18 05:33 05:59 Temperature Pulse Rate Respiratory 16 17 Rate Blood Pressure (mmHg) O2 Sat by Pulse 99 Oximetry 04/25/17 04/25/17 04/25/17 06:00 06:43 07:40 Temperature 98.3 F Pulse Rate 75 Respiratory 22 17 18 Rate Blood Pressure 170/77 (mmHg) O2 Sat by Pulse 99 Oximetry 04/25/17 04/25/17 04/25/17 07:42 07:45 07:57 Temperature Pulse Rate Respiratory 16 16 16 Rate Blood Pressure (mmHg) O2 Sat by Pulse Oximetry 04/25/17 04/25/17 04/25/17 07:58 08:27 09:24 Temperature Pulse Rate Respiratory 16 16 16 Rate Blood Pressure (mmHg) O2 Sat by Pulse Oximetry 04/25/17 04/25/17 04/25/17 10:02 10:07 10:10 Temperature 98.8 F Pulse Rate 68 Respiratory 16 16 16 Rate Blood Pressure 164/81 (mmHg) O2 Sat by Pulse 100 Oximetry 04/25/17 04/25/17 04/25/17 10:21 11:34 11:50 Temperature 98.3 F Pulse Rate 67 Respiratory 20 16 16 Rate Blood Pressure 155/80 (mmHg) O2 Sat by Pulse 100 Oximetry 04/25/17 13:49 Temperature Pulse Rate Respiratory Rate Blood Pressure (mmHg) O2 Sat by Pulse 99 Oximetry Oxygen Devices in Use Now: None Appearance: Patient is a 56yo male who appears states age and is sitting in the bed in [facility]. Eyes: No Scleral Icterus, PERRLA Ears/Nose/Mouth/Throat: NL Teeth, Lips, Gums, Clear Oropharnyx, Mucous Membranes Moist Neck: NL Appearance and Movements; NL JVP, Trachea Midline Respiratory: Symmetrical Chest Expansion and Respiratory Effort, Clear to Auscultation Cardiovascular: NL Sounds; No Murmurs; No JVD, RRR, - - 1+ edema in right leg without calf tenderness. Abdominal: NL Sounds; No Tenderness; No Distention, No Hepatosplenomegaly Lymphatic: No Cervical Adenopathy Extremities: No Clubbing, Cyanosis, - - Right knee covered by bulky dressing and cold pack. Pulses, movement and sensation intact distally and symmetrical. Skin: No Nodules or Sclerosis Neurological: Alert and Oriented x 3, NL Sensation, NL Muscle Strength and Tone Result Diagrams: 04/25/17 05:07 04/25/17 05:07 Microbiology and Other Data: Microbiology 04/24/17 09:00 Gram Stain - Final Knee Right Wound Culture - Preliminary No Growth Day 1 04/24/17 09:00 Anaerobic Culture - Preliminary Body Fluid - Knee Right No Growth Day 1 Assess/Plan/Problems-Billing Assessment: Patient is a 56yo male with a PMH significant for HTN, HLD, CKD, CAD with stent , and DMII who is POD #1 after a RTKA. Patient had no complications and is doing well. - Patient Problems (1) Post-operative state Current Visit: Yes Status: Acute Code(s): Z98.890 - OTHER SPECIFIED POSTPROCEDURAL STATES SNOMED Code(s): 16824280 Comment: POD#1, Urinating and Passing Flatus. Pain moderately well controlled, pain control per primary team. (2) DM (diabetes mellitus) Current Visit: No Status: Acute Priority: Medium Code(s): E11.9 - TYPE 2 DIABETES MELLITUS WITHOUT COMPLICATIONS SNOMED Code(s): 16648736 Comment: cont SSI and Lantus 50u Moderate control Resume home Lantus and Glucotrol at D/C. (3) HTN (hypertension) Current Visit: No Status: Acute Code(s): I10 - ESSENTIAL (PRIMARY) HYPERTENSION SNOMED Code(s): 66166707 Comment: Moderately hypertensive, reintroduced lisinopril and HCTZ. Continue metoprolol (4) S/P cardiac catheterization Current Visit: No Status: Acute Priority: High Onset Date: 04/24/15 Code (s): Z98.89 - OTHER SPECIFIED POSTPROCEDURAL STATES * DO NOT USE * SNOMED Code (s): 67719936389062 Comment: No CP or signs of CHF. Restart ASA on 04/26 (5) Dyslipidemia Current Visit: No Status: Chronic Priority: Medium Code(s): E78.5 - HYPERLIPIDEMIA, UNSPECIFIED SNOMED Code(s): 156442094 Comment: cont lipitor (6) CKD (chronic kidney disease) stage 2, GFR 60-89 ml/min Current Visit: Yes Status: Acute Code(s): N18.2 - CHRONIC KIDNEY DISEASE, STAGE 2 (MILD) SNOMED Code(s): 598791727 Comment: Cret at baseline. Will monitor. (7) Full code status Current Visit: Yes Status: Acute Code(s): Z78.9 - OTHER SPECIFIED HEALTH STATUS SNOMED Code(s): 576219448 (8) DVT prophylaxis Current Visit: No Status: Acute Code(s): ZEX6111 - SNOMED Code(s): 316704166 Comment: SCDs, Lovenox bridge to warfarin per ortho. Status and Disposition: Disposition per primary team, Possible discharge over the weekend.
[2017-04-25] MEDS: Hydrochlorothiazide TAB* 25 MG PO SCH (15:00)
[2017-04-25] MEDS: hydrALAZINE IV* 20 MG/ML VIAL IV SLOW PU PRN (16:38)
[2017-04-25] MEDS ORDERED: Warfarin TAB(*) 6 MG PO ONE (17:00)
[2017-04-25] MEDS: Atorvastatin* 80 MG TAB PO SCH (17:29)
[2017-04-25] MEDS: Latanoprost 0.005%* 2.5 ml BTL BOTH EYES SCH (18:00)
[2017-04-25] MEDS: Morphine TAB Extended Release (*) 30 MG TAB.ER PO SCH (21:28)
[2017-04-25] MEDS: Insulin GLARGINE(*) 1 UNITS UNIT SUBCUT SCH (21:30)
[2017-04-26] MEDS: hydrALAZINE IV* 20 MG/ML VIAL IV SLOW PU PRN (00:11)
[2017-04-26] MEDS: oxyCODONE/Acetamin 5/325 MG* TAB PO PRN ×5 (03:51→20:17)
[2017-04-26] MEDS: HYDROmorphone INJ* 1 MG/ML CARPUJECT SYRINGE IV PRN (04:20)
[2017-04-26 05:31] LABS: Hematocrit 32 % (42-52); Hemoglobin 10.8 g/dl (14.0-18.0); Mean Platelet Volume 9 um3 (7.4-10.4)
[2017-04-26 05:47] LABS: BUN/Creatinine Ratio 12.4 (8-20); Calcium 8.7 mg/dL (8.6-10.3); EGFR African American 86.6 (>60); EGFR Non-African American 67.4 (>60); Potassium 3.2 mmol/L (3.5-5.0)
[2017-04-26] MEDS ORDERED: Potassium Chlor TAB* 20 MEQ TAB.ER PO ONE (07:15)
[2017-04-26] MEDS: Cyclobenzaprine TAB* 10 MG PO PRN ×2 (08:03→18:17)
[2017-04-26] MEDS: Insulin LISPRO* 1 UNITS UNIT SUBCUT SCH ×3 (08:29→16:59)
[2017-04-26] MEDS: Docusate CAP* 100 MG PO SCH ×2 (08:53→22:08)
[2017-04-26] MEDS: Hydrochlorothiazide TAB* 25 MG PO SCH (08:53)
[2017-04-26] MEDS: Lisinopril TAB* 10 MG PO SCH (08:53)
[2017-04-26] MEDS: Aspirin EC Low Dose* 81 MG TAB.EC PO SCH (08:53)
[2017-04-26] MEDS: Metoprolol Succinate XL TAB* 25 MG PO SCH (08:53)
[2017-04-26] MEDS: Morphine TAB Extended Release (*) 30 MG TAB.ER PO SCH ×2 (08:54→22:07)
[2017-04-26] MEDS: PTO: Brimonidine P 0.15%(NF) OPH SOL 5 ML BTL BOTH EYES SCH ×2 (08:56→22:06)
[2017-04-26] MEDS: Potassium Chlor TAB* 20 MEQ TAB.ER PO SCH ×2 (09:01→22:07)
--- NOTE | 2017-04-26 09:01 | PN ---
Progress Note - Progress Note Date of Service: 04/26/17 SOAP: Subjective: Pt. is alert, c/o moderate pain. Objective: RLE - dressing changed, inc c/d/i. mod effusion. calf soft. nvi. Vital Signs: Temp Pulse Resp BP Pulse Ox 99.5 F 82 18 163/80 97 04/26/17 07:30 04/26/17 07:30 04/26/17 08:54 04/26/17 07:30 04/26/17 07:30 Laboratory Results - last 24 hr 04/25/17 04/25/17 04/25/17 11:36 16:28 21:10 Hgb Hct Plt Count MPV INR (Anticoag Therapy) Sodium Potassium Chloride Carbon Dioxide Anion Gap BUN Creatinine Est GFR ( Amer) Est GFR (Non-Af Amer) BUN/Creatinine Ratio Glucose POC Glucose (mg/dL) 144 H 134 H 162 H Calcium 04/26/17 04/26/17 04/26/17 04:49 04:49 04:49 Hgb 10.8 L Hct 32 L Plt Count 153 MPV 9 INR (Anticoag Therapy) 1.31 H Sodium 132 L Potassium 3.2 L Chloride 98 L Carbon Dioxide 28 Anion Gap 6 BUN 14 Creatinine 1.13 Est GFR ( Amer) 86.6 Est GFR (Non-Af Amer) 67.4 BUN/Creatinine Ratio 12.4 Glucose 84 POC Glucose (mg/dL) Calcium 8.7 Assessment: 56 yo M pod 2 s/p RTKA Plan: chronic pain meds - now postop pain poorly controlled due to tolerance - plan d/ c on morphine ER 30 bid and oxycodone 10 mg. pt/ot lovenox today and 8 coumadin tonight keflex x 7 days
[2017-04-26] MEDS: Cephalexin CAP* 500 MG PO SCH ×4 (09:27→22:07)
[2017-04-26] MEDS: Enoxaparin(*) 40 MG/0.4 ML SYR SUBCUT SCH (09:27)
[2017-04-26] MEDS: PTO: Dorzolamide/Timolol OPTH (NF) 10 ML BOT BOTH EYES SCH ×2 (09:27→23:35)
[2017-04-26] MEDS ORDERED: Lisinopril TAB* 10 MG PO ONE (09:54)
--- NOTE | 2017-04-26 14:34 | PN ---
Subjective Date of Service: 04/26/17 Interval History: Patient has no complaints. Pain 5/10 on new medication regimen, patient sleeping on initiation of interview. Denies CP, SOB, Abdominal pain, N/V, F/C, diarrhea, constipation, dysuria, oliguria, or other pain. Family History: Unchanged from Admission Social History: Unchanged from Admission Past Medical History: Unchanged from Admission Objective Active Medications: Acetaminophen (Tylenol Tab*) 650 mg PO Q4H PRN PRN Reason: PAIN OR TEMPERATURE Last Admin: 04/24/17 20:32 Dose: 650 mg Aspirin (Aspirin Ec Low Dose*) 81 mg PO QAM [facility] Last Admin: 04/26/17 08:53 Dose: 81 mg Atorvastatin Calcium (Lipitor*) 80 mg PO QPM [facility] Last Admin: 04/25/17 17:29 Dose: 80 mg Bisacodyl (Dulcolax Supp*) 10 mg [place] DAILY PRN PRN Reason: constipation Brimonidine Tartrate (Alphagan P 0.15%(Nf)) 1 drop BOTH EYES BID [facility] Last Admin: 04/26/17 08:56 Dose: 1 drop Cephalexin HCl (Keflex Cap*) 500 mg PO QID [facility] Stop: 05/02/17 23:59 Last Admin: 04/26/17 13:32 Dose: 500 mg Cyclobenzaprine HCl (Flexeril Tab*) 10 mg PO TID PRN PRN Reason: SPASMS - MUSCLE Last Admin: 04/26/17 08:03 Dose: 10 mg Dextrose (D50w Syringe 50 Ml*) 12.5 gm IV PUSH .FOR FS < 60 - SS PRN PRN Reason: FS < 60 Diphenhydramine HCl (Benadryl Iv*) 12.5 mg IV Q6H PRN PRN Reason: PRURITIS Docusate Sodium (Colace Cap*) 100 mg PO BID [facility] Last Admin: 04/26/17 08:53 Dose: 100 mg Dorzolamide/Timolol (Cosopt (Nf)) 1 drop BOTH EYES BID [facility] PRN Reason: Protocol Last Admin: 04/26/17 09:27 Dose: 1 drop Enoxaparin Sodium (Lovenox(*)) 40 mg SUBCUT Q24H [facility] Last Admin: 04/26/17 09:27 Dose: 40 mg Hydralazine HCl (Apresoline Iv*) 5 mg IV SLOW PU Q6H PRN PRN Reason: SYSTOLIC BP GREATER THAN: Last Admin: 04/26/17 00:11 Dose: 5 mg Hydrochlorothiazide (Hydrodiuril Tab*) 25 mg PO DAILY [facility] Last Admin: 04/26/17 08:53 Dose: 25 mg Hydromorphone HCl (Dilaudid Injic*) 1 mg IV Q2H PRN PRN Reason: PAIN Last Admin: 04/26/17 04:20 Dose: 1 mg Insulin Glargine (Lantus(*)) 50 units SUBCUT BEDTIME [facility] Last Admin: 04/25/17 21:30 Dose: 50 units Insulin Human Lispro (Humalog*) 0 units SUBCUT AC [facility] PRN Reason: Protocol Last Admin: 04/26/17 12:34 Dose: 3 units Lactulose (Lactulose*) 30 ml PO Q6H PRN PRN Reason: constipation Latanoprost (Xalatan 0.005%*) 1 drop BOTH EYES QPM [facility] Last Admin: 04/25/17 18:00 Dose: 1 drop Lisinopril (Prinivil Tab*) 40 mg PO DAILY [facility] Magnesium Hydroxide (Milk Of Magnesia Liq*) 30 ml PO Q6H PRN PRN Reason: constipation Metoprolol Succinate (Toprol Xl Tab*) 50 mg PO QAM [facility] Last Admin: 04/26/17 08:53 Dose: 50 mg Morphine Sulfate (Ms Contin(*)) 30 mg PO BID [facility] Last Admin: 04/26/17 08:54 Dose: 30 mg Ondansetron HCl (Zofran Inj*) 4 mg IV Q6H PRN PRN Reason: nausea Ondansetron HCl (Zofran Tab*) 4 mg PO Q6H PRN PRN Reason: NAUSEA Oxycodone HCl (Roxycodone Tab*) 10 mg PO Q4H PRN PRN Reason: SEVERE PAIN Oxycodone/Acetaminophen (Percocet 5/325 Tab*) 1 tab PO Q4H PRN PRN Reason: PAIN Oxycodone/Acetaminophen (Percocet 5/325 Tab*) 2 tab PO Q4H PRN PRN Reason: PAIN Last Admin: 04/26/17 12:09 Dose: 2 tab Pharmacy Profile Note (Coumadin Daily Reminder*) 0 note FOLLOW UP 1700 [facility] Last Admin: 04/25/17 17:31 Dose: 1 note Polyethylene Glycol/Electrolytes (Miralax*) 17 gm PO DAILY PRN PRN Reason: Constipation Potassium Chloride (Klor Con Er Tab*) 20 meq PO BID [facility] Last Admin: 04/26/17 09:01 Dose: Not Given Warfarin Sodium (Coumadin Tab(*)) 8 mg PO ONCE@1700 ONE PRN Reason: Protocol Stop: 04/26/17 17:01 Vital Signs 04/25/17 04/25/17 04/25/17 15:37 15:38 15:46 Temperature 99.2 F Pulse Rate 70 Respiratory 16 Rate Blood Pressure 185/88 175/90 (mmHg) O2 Sat by Pulse 99 99 Oximetry 04/25/17 04/25/17 04/25/17 15:49 16:24 16:28 Temperature Pulse Rate Respiratory 16 16 16 Rate Blood Pressure (mmHg) O2 Sat by Pulse Oximetry 04/25/17 04/25/17 04/25/17 16:31 16:32 17:32 Temperature Pulse Rate 76 Respiratory 16 16 Rate Blood Pressure 179/90 (mmHg) O2 Sat by Pulse Oximetry 04/25/17 04/25/17 04/25/17 17:59 18:48 18:49 Temperature Pulse Rate Respiratory 16 16 16 Rate Blood Pressure (mmHg) O2 Sat by Pulse Oximetry 04/25/17 04/25/17 04/25/17 19:45 20:23 21:10 Temperature 99.6 F Pulse Rate 84 66 Respiratory 16 20 16 Rate Blood Pressure 170/82 (mmHg) O2 Sat by Pulse 97 Oximetry 04/25/17 04/25/17 04/25/17 21:28 23:18 23:29 Temperature 99.5 F Pulse Rate 84 Respiratory 16 20 18 Rate Blood Pressure 178/83 (mmHg) O2 Sat by Pulse 98 Oximetry 04/25/17 04/25/17 04/26/17 23:30 23:31 00:08 Temperature Pulse Rate 84 Respiratory 18 18 Rate Blood Pressure 173/77 (mmHg) O2 Sat by Pulse 97 Oximetry 04/26/17 04/26/17 04/26/17 01:33 03:51 03:58 Temperature 99.1 F Pulse Rate 87 Respiratory 16 16 16 Rate Blood Pressure (mmHg) O2 Sat by Pulse 96 Oximetry 04/26/17 04/26/17 04/26/17 04:00 04:20 04:26 Temperature Pulse Rate Respiratory 16 16 Rate Blood Pressure 159/86 (mmHg) O2 Sat by Pulse Oximetry 04/26/17 04/26/17 04/26/17 05:20 06:24 07:30 Temperature 99.5 F Pulse Rate 82 Respiratory 16 16 16 Rate Blood Pressure 163/80 (mmHg) O2 Sat by Pulse 97 Oximetry 04/26/17 04/26/17 04/26/17 07:59 08:00 08:03 Temperature Pulse Rate Respiratory 18 18 18 Rate Blood Pressure (mmHg) O2 Sat by Pulse Oximetry 04/26/17 04/26/17 04/26/17 08:54 10:57 10:58 Temperature Pulse Rate Respiratory 18 18 18 Rate Blood Pressure (mmHg) O2 Sat by Pulse Oximetry 04/26/17 12:09 Temperature Pulse Rate Respiratory 20 Rate Blood Pressure (mmHg) O2 Sat by Pulse Oximetry Oxygen Devices in Use Now: None Appearance: Patient is a 56yo male who appears stated age and is sitting in the bed in [facility]. Eyes: No Scleral Icterus, PERRLA Ears/Nose/Mouth/Throat: NL Teeth, Lips, Gums, Clear Oropharnyx, Mucous Membranes Moist Neck: NL Appearance and Movements; NL JVP, Trachea Midline Respiratory: Symmetrical Chest Expansion and Respiratory Effort, Clear to Auscultation Cardiovascular: NL Sounds; No Murmurs; No JVD, RRR, No Edema, - - Pulses 2+ in B /L radial PT/DP. Abdominal: NL Sounds; No Tenderness; No Distention, No Hepatosplenomegaly Lymphatic: No Cervical Adenopathy Extremities: No Edema, No Clubbing, Cyanosis, - - Right Knee covered by bulky dressing and cold pack. Skin: No Rash or Ulcers, No Nodules or Sclerosis Neurological: Alert and Oriented x 3, NL Sensation, NL Muscle Strength and Tone Result Diagrams: 04/26/17 04:49 04/26/17 04:49 Microbiology and Other Data: Microbiology 04/24/17 09:00 Gram Stain - Final Knee Right Wound Culture - Preliminary No Growth Day 1 04/24/17 09:00 Anaerobic Culture - Preliminary Body Fluid - Knee Right No Growth Day 1 Assess/Plan/Problems-Billing Assessment: Patient is a 56yo male with a PMH significant for HTN, HLD, CKD, CAD with stent , and DMII who is POD #1 after a RTKA. Patient had no complications and is doing well. - Patient Problems (1) Post-operative state Current Visit: Yes Status: Acute Code(s): Z98.890 - OTHER SPECIFIED POSTPROCEDURAL STATES SNOMED Code(s): 67073340 Comment: POD#2, Urinating and Passing Flatus. No BM. H/H stable at 10.8 Pain better controlled, pain control per primary team. (2) DM (diabetes mellitus) Current Visit: No Status: Acute Priority: Medium Code(s): E11.9 - TYPE 2 DIABETES MELLITUS WITHOUT COMPLICATIONS SNOMED Code(s): 34816500 Comment: cont SSI and Lantus 50u Moderate control Resume home Lantus and Glucotrol at D/C. (3) HTN (hypertension) Current Visit: No Status: Acute Code(s): I10 - ESSENTIAL (PRIMARY) HYPERTENSION SNOMED Code(s): 62413142 Comment: Persistently moderately hypertensive, Increased lisinopril to 40mg daily. Continue metoprolol and HCTZ. (4) S/P cardiac catheterization Current Visit: No Status: Acute Priority: High Onset Date: 04/24/15 Code (s): Z98.89 - OTHER SPECIFIED POSTPROCEDURAL STATES * DO NOT USE * SNOMED Code (s): 69732397310873 Comment: No CP or signs of CHF. Restart ASA on 04/26 (5) Dyslipidemia Current Visit: No Status: Chronic Priority: Medium Code(s): E78.5 - HYPERLIPIDEMIA, UNSPECIFIED SNOMED Code(s): 886006702 Comment: cont lipitor (6) CKD (chronic kidney disease) stage 2, GFR 60-89 ml/min Current Visit: Yes Status: Acute Code(s): N18.2 - CHRONIC KIDNEY DISEASE, STAGE 2 (MILD) SNOMED Code(s): 175694026 Comment: Cret at baseline. Will monitor. (7) Full code status Current Visit: Yes Status: Acute Code(s): Z78.9 - OTHER SPECIFIED HEALTH STATUS SNOMED Code(s): 728192907 (8) DVT prophylaxis Current Visit: No Status: Acute Code(s): YMV2490 - SNOMED Code(s): 273240773 Comment: SCDs, Lovenox bridge to warfarin per ortho. Status and Disposition: Disposition per primary team, Possible discharge over the weekend.
[2017-04-26] MEDS ORDERED: Warfarin TAB(*) 4 MG PO ONE (17:00)
[2017-04-26] MEDS: Latanoprost 0.005%* 2.5 ml BTL BOTH EYES SCH (18:12)
[2017-04-26] MEDS: Atorvastatin* 80 MG TAB PO SCH (18:12)
[2017-04-26] MEDS: Insulin GLARGINE(*) 1 UNITS UNIT SUBCUT SCH (22:08)
[2017-04-27] MEDS: oxyCODONE/Acetamin 5/325 MG* TAB PO PRN ×4 (00:27→13:15)
[2017-04-27 05:12] LABS: Hematocrit 31 % (42-52); Hemoglobin 10.2 g/dl (14.0-18.0)
[2017-04-27 05:27] LABS: BUN/Creatinine Ratio 15.9 (8-20); Calcium 8.8 mg/dL (8.6-10.3); EGFR African American 68.8 (>60); EGFR Non-African American 53.5 (>60); Potassium 3.5 mmol/L (3.5-5.0)
[2017-04-27] MEDS ORDERED: Scopolamine PATCH Remove* 1 NOTE MISC PATCH OFF ONE (05:56)
[2017-04-27] MEDS: Insulin LISPRO* 1 UNITS UNIT SUBCUT SCH ×2 (08:33→12:45)
[2017-04-27] MEDS: Cephalexin CAP* 500 MG PO SCH ×2 (08:55→13:15)
[2017-04-27] MEDS: PTO: Brimonidine P 0.15%(NF) OPH SOL 5 ML BTL BOTH EYES SCH (08:55)
[2017-04-27] MEDS: Hydrochlorothiazide TAB* 25 MG PO SCH (08:55)
[2017-04-27] MEDS: PTO: Dorzolamide/Timolol OPTH (NF) 10 ML BOT BOTH EYES SCH (08:55)
[2017-04-27] MEDS: Metoprolol Succinate XL TAB* 25 MG PO SCH (08:55)
[2017-04-27] MEDS: Morphine TAB Extended Release (*) 30 MG TAB.ER PO SCH (08:56)
[2017-04-27] MEDS: Docusate CAP* 100 MG PO SCH (08:56)
[2017-04-27] MEDS: Aspirin EC Low Dose* 81 MG TAB.EC PO SCH (08:56)
[2017-04-27] MEDS: Potassium Chlor TAB* 20 MEQ TAB.ER PO SCH (08:56)
[2017-04-27] MEDS ORDERED: Lisinopril TAB* 10 MG PO SCH (09:00)
[2017-04-27] MEDS: Enoxaparin(*) 40 MG/0.4 ML SYR SUBCUT SCH (10:41)
--- NOTE | 2017-04-27 10:51 | PN ---
Progress Note - Progress Note Date of Service: 04/27/17 SOAP: Subjective: Doing well. Continued pain but controlled. PT going well. Denies F/C, CP/SOB or calf pain Objective: PE: WDWN M, NAD, A&O RLE- dressing c/d/i, +DF/PF, NVI, calf soft NT Vital Signs Temp Pulse Resp BP Pulse Ox 97.8 F 87 20 137/63 98 04/27/17 07:29 04/27/17 07:29 04/27/17 09:05 04/27/17 07:29 04/27/17 07:45 Laboratory Results - last 24 hr 04/26/17 04/26/17 04/26/17 08:02 11:59 16:58 Hgb Hct INR (Anticoag Therapy) Sodium Potassium Chloride Carbon Dioxide Anion Gap BUN Creatinine Est GFR ( Amer) Est GFR (Non-Af Amer) BUN/Creatinine Ratio Glucose POC Glucose (mg/dL) 81 162 H 121 H Calcium 04/26/17 04/27/17 04/27/17 21:55 05:02 05:03 Hgb 10.2 L Hct 31 L INR (Anticoag Therapy) 1.31 H Sodium Potassium Chloride Carbon Dioxide Anion Gap BUN Creatinine Est GFR ( Amer) Est GFR (Non-Af Amer) BUN/Creatinine Ratio Glucose POC Glucose (mg/dL) 167 H Calcium 04/27/17 04/27/17 05:03 07:53 Hgb Hct INR (Anticoag Therapy) Sodium 132 L Potassium 3.5 Chloride 96 L Carbon Dioxide 28 Anion Gap 8 BUN 22 Creatinine 1.38 H Est GFR ( Amer) 68.8 Est GFR (Non-Af Amer) 53.5 BUN/Creatinine Ratio 15.9 Glucose 100 POC Glucose (mg/dL) 80 Calcium 8.8 Assessment: 56 yo M pod 3 s/p RTKA Plan: morphine ER 30 bid and oxycodone 10 mg for pain, keflex x 7 days, colace for constipation and coumadin for DVT prophylaxis Cont pt/ot- WBAT RLE lovenox today and 8 coumadin tonight DC to home with VNS today F/U 10-14 days post op with Dr Xie
[2017-04-27 12:57] VITALS: BP 124/62
--- NOTE | 2017-04-27 13:34 | DS ---
DISCHARGE SUMMARY: DATE OF ADMISSION: 04/24/17 DATE OF DISCHARGE: 04/27/17 PROVIDER: Mayela Xie MD * (DICTATED BY EMILY ASKEW) ADMITTING DIAGNOSIS: Status post right total knee arthroplasty for treatment of severe right knee osteoarthritis. SECONDARY DIAGNOSES: 1. Hypertension. 2. Hyperlipidemia. 3. Diabetes. 4. Coronary artery disease. 5. History of myocardial infarction. 6. Chronic kidney disease. CONSULTATIONS: Hospitalist, Physical Therapy, and Occupational Therapy. HISTORY OF PRESENT ILLNESS: Mr. Freeman is a 56-year-old male who presented to the clinic with complaints of right knee pain due to severe degenerative osteoarthritis. He failed conservative measures and therefore, agreed to undergo right total knee arthroplasty with Dr. Xie on 04/24/17. HOSPITAL COURSE: The patient was admitted to [facility] on 04/24/17. He underwent a right total knee arthroplasty. Post-operatively, he recovered on the short- stay surgical unit. Postop day 1, his Machado was removed. He was able to urinate on his own. He was advanced to a regular diet without difficulty. He had some difficulty with pain control, therefore was started on a long-acting morphine. His labs and vitals remained stable. He was able to weight bear as tolerated on the right lower extremity. He advanced appropriately with physical therapy and occupational therapy. DVT prophylaxis was managed with Lovenox and Coumadin until he reached therapeutic INR. By postop day 3, he was orthopedically and medically stable for discharge to home with VNS services. PHYSICAL EXAMINATION: General: A 56-year-old well-developed, well-nourished female, in no acute distress. Alert and oriented x3 with appropriate mood and affect. Right lower extremity: Incision is clean, dry, and intact. Calf soft and nontender. Positive dorsiflex and plantar flexion at the ankle. Neurovascularly intact. DISCHARGE CONDITION: Stable. DISCHARGE MEDICATIONS: Home medications continued on discharge to include: 1. Glipizide 10 mg by mouth twice a day. 2. Iinfjv749 units/mL, 50 units subcu at bedtime. 3. Cosopt 1 drop both eyes twice a day. 4. Alphagan 1 drop both eyes twice a day. 5. Percocet 10/325 mg 1 by mouth 3 times a day as needed for pain. 6. Lisinopril 20 mg 1 by mouth in the morning. 7. Xalatan 0.005% 1 drop both eyes in the evening. 8. Atorvastatin 80 mg 1 by mouth in the morning. 9. Hydrochlorothiazide 25 mg in the morning. 10. Metoprolol succinate 50 mg in the morning. 11. Aspirin 81 mg 1 by mouth in the morning. New medications on discharge to include: 1. Keflex 500 mg by mouth 4 times a day. 2. Docusate 100 mg by mouth twice a day. 3. MS Contin 30 mg by mouth twice a day for pain. 4. Oxycodone 10 mg 1 to 2 tablets by mouth every 6 hours as needed for pain. 5. Coumadin 2 mg tablets 1 to 5 by mouth daily as directed by doctor. DISCHARGE INSTRUCTIONS: The patient is weightbearing as tolerated on the right lower extremity. It is okay for him to shower, no submerging the wound. Cover with Kiko and gauze. Call the orthopedic office with increased drainage, redness , increased pain or fever. Go to the ER with chest pain or shortness of breath. Regular diet. Use stool softeners. Call if no bowel movement within 48 hours. Continue Colace for constipation. Continue PT/OT. Visiting home nurses to do wound checks and blood draws on Friday and . Continue Coumadin for DVT prophylaxis x1 month. Coumadin dose on 04/27/17, 8 mg; redraw on . Do not take aspirin with Coumadin. We will restart aspirin in 1 month when the Coumadin is stopped. Pain control with oxycodone 10 mg 1 to 2 every 6 hours as needed for pain and morphine sulfate ER 30 mg twice a day. Okay to take Tylenol with oxycodone. He should not take the Percocet with the other pain medications. He should take Keflex 500 mg 1 by mouth 4 times a day x7 days per Dr. Xie's recommendations, we are concerned for a superficial skin infection. He will require antibiotics prior to any future dental work. He will will follow up with Dr. Xie within 10 to 14 days, he should call to make an appointment. EMILY ASKEW [id number]/[facility] #: [id number] BRIGITTE
== END 2017-04-27 13:45 | disposition home health service (06) | DRG 302 ==
LOC: OR 06:54 → SSU 14:09
PROVIDERS: ADMIT Orthopaedic Surgery Adult Reconstructive Orthopaedic Surgery; ATTEND Orthopaedic Surgery Adult Reconstructive Orthopaedic Surgery
PROC: 0SRC069 Replacement of Right Knee Joint with Oxidized Zirconium on Polyethylene Synthetic Substitute, Cemented, Open Approach (ICD-10-PCS; principal; 2017-04-24 08:00)
DX: M17.11 Unilateral primary osteoarthritis, right knee (principal); E11.22 Type 2 diabetes mellitus with diabetic chronic kidney disease; I13.10 Hypertensive heart and chronic kidney disease without heart failure, with stage 1 through stage 4 chronic kidney disease, or unspecified chronic kidney disease; N18.2 Chronic kidney disease, stage 2 (mild); M25.761 Osteophyte, right knee; I25.10 Atherosclerotic heart disease of native coronary artery without angina pectoris; E78.5 Hyperlipidemia, unspecified; Z95.5 Presence of coronary angioplasty implant and graft; Z79.82 Long term (current) use of aspirin; Z79.4 Long term (current) use of insulin; Z79.899 Other long term (current) drug therapy; Z82.49 Family history of ischemic heart disease and other diseases of the circulatory system; Z83.3 Family history of diabetes mellitus; Z80.9 Family history of malignant neoplasm, unspecified; I25.2 Old myocardial infarction; Q72.891 Other reduction defects of right lower limb
CPT/HCPCS: 36415; 71010; 80048; 81003; 81015; 85014; 85018; 85049; 85610; 87040; 87070; 87073; 87086; 87205; 88305; 88311; 94760; A9270-GY; C1776; J0360; J0690; J1170; J1650; J2001; J2250; J2270; J2405; J2704; J2795; J3010

== ENCOUNTER 2018-03-04 06:21 | Day surgery (SDC) | payer BC ==
[~2018-03-04 06:21] MED LIST changes: +Acetaminophen TAB* 325 MG PO PRN; -DiMENhydriNATE IV* 50 MG/ML VIAL IV PUSH PRN; -Famotidine IV* 10 MG/ML 2 ML (20 mg) IV ONE; -Metoclopramide TAB* 10 MG PO ONE; -Morphine INJ* 2 MG/ML 1 ML CARPUJECT IV PRN; -PROCHLORPERAZINE INJ 5 MG/ML 2 ML VIAL IV PRN; -Scopolamine 1.5 mg* PATCH TRANSDERM PRN; -fentaNYL* 50 MCG/ML 2 ML VIAL (100 MCG VIAL) IV PRN; +mitoMYcin 0.2 MG (0.02%) in Sterile Water for Inj* 1 ML OPHTHALMIC SCH; +mitoMYcin PWD* 0.2 MG in Sterile Water for Inj* 1 ML OPHTHALMIC SCH; -oxyCODONE/Acetamin 5/325 MG* TAB PO PRN
[2018-03-04] MEDS ORDERED: fentaNYL* 50 MCG/ML 2 ML VIAL (100 MCG VIAL) ONE (07:12)
[2018-03-04] MEDS ORDERED: Propofol* 10 MG/ML 20 ML BTL IV PUSH ONE (07:12)
[2018-03-04] MEDS ORDERED: Lidocaine 2% PF * 5 ML VIAL ONE (07:12)
[2018-03-04] MEDS ORDERED: Midazolam* 1 MG/ML 5 ML VIAL (5 MG) ONE (07:12)
[2018-03-04] MEDS ORDERED: Lidocaine 2% PF* 10 ML AMP ONE (07:16)
[2018-03-04] MEDS ORDERED: Sodium Bicarbonate 8.4% SYR* 10 ML SYRINGE ONE (07:17)
[2018-03-04] MEDS ORDERED: Lidocaine 2% EPI 1:200000 MPF*10-20 ML VIAL ONE ×3 (07:17→07:57)
[2018-03-04] MEDS ORDERED: Hyaluronidase OVINE* 200 UNIT/ML ML SUBCUT ONE (07:17)
[2018-03-04] MEDS ORDERED: Bupivacaine 0.25% SDV* 30 ML ONE (07:21)
[2018-03-04] MEDS ORDERED: Atropine 1% OPHTH.SOL* 2 ML BOT - 2 ML ONE (07:21)
[2018-03-04] MEDS ORDERED: Acetylcholine 1:100 OPTH* OPHTH.SOLN ONE (07:21)
[2018-03-04] MEDS ORDERED: Triamcinolone Acetonide* 40 MG/ML 1 ML VIAL ONE (07:21)
[2018-03-04] MEDS ORDERED: Povidone Iodine 5% OPTH* 30 ML BTL ONE (07:22)
[2018-03-04] MEDS ORDERED: BSS OPTH.SOL* BTL ONE (07:22)
[2018-03-04] MEDS ORDERED: Neomycin/Polymy/Dex OPTH.SUSP* MAXITROL 0.1% 5 ML ONE (07:22)
[2018-03-04 08:56] VITALS: BP 130/81
--- NOTE | 2018-03-05 01:55 | OP ---
DATE OF OPERATION: 03/04/18 [facility] DATE OF : 62 SURGEON: Ruben Giraldo MD ANESTHESIA: Local MAC. PRE-OP DIAGNOSIS: Uncontrolled glaucoma, right eye. POST-OP DIAGNOSIS: Uncontrolled glaucoma, right eye. OPERATIVE PROCEDURE: Trabeculectomy, right eye. COMPLICATIONS: None. DESCRIPTION OF PROCEDURE: The patient was given retrobulbar anesthesia in the operating room, 50:50 mixture of 2% lidocaine with epinephrine, 0.25 Marcaine with bicarb and Vitrase added, 4 cc given in the muscle cone without difficulty. The eye was prepped and draped in the usual sterile fashion. Lid speculum was placed. A 6-0 silk traction suture placed through the superior cornea and rotated inferiorly. A fornix-based conjunctival peritomy was performed from the 12 o'clock to the 2 o'clock position with the Beau scissors. Subtenon 2% lidocaine with epinephrine was injected. Hemostasis was achieved with cautery. Mitomycin-C 0.2 mg/mL was placed on the sclera under the conjunctiva and tenons for 90 seconds and thoroughly irrigated with balanced salt solution. A triangular half-scleral thickness limbal base scleral flap was created at 1 o'clock position with the crescent blade. Anterior chamber entered with the 3-mm keratome. Paracentesis made at the 9 o'clock with the 75 blade. A 3 x 1 mm trabecular block excised using a Mable punch. Miochol and then DisCoVisc was instilled into the anterior chamber. The scleral flap was sutured with one 10-0 nylon suture at its apex. Conjunctiva closed with a running locking 10-0 nylon suture and a running locking 10-0 Vicryl suture. Wounds were checked and found to be watertight. The eye was reinflated with balanced salt solution and then given atropine and Maxitrol drops. [id number]/[facility] #: [id number] [facility]
== END 2018-03-04 09:08 | disposition home or self-care (01) ==
LOC: OREAST 06:21
PROVIDERS: ATTEND Specialist
DX: H40.1113 Primary open-angle glaucoma, right eye, severe stage (principal); Z79.4 Long term (current) use of insulin; I25.10 Atherosclerotic heart disease of native coronary artery without angina pectoris; Z95.5 Presence of coronary angioplasty implant and graft; Z87.891 Personal history of nicotine dependence; I12.9 Hypertensive chronic kidney disease with stage 1 through stage 4 chronic kidney disease, or unspecified chronic kidney disease; E11.22 Type 2 diabetes mellitus with diabetic chronic kidney disease; N18.9 Chronic kidney disease, unspecified; D64.9 Anemia, unspecified
CPT/HCPCS: A9270-GY; J2001; J2250; J2704; J3010; J3301; J3471; J9280

== ENCOUNTER 2018-04-22 11:36 | Day surgery (SDC) | payer BC ==
[~2018-04-22 11:36] MED LIST changes: -Acetaminophen TAB* 325 MG PO PRN; +Cyclopentolate 1% OPTH.SOL* 2 ML BTL ONE; +Ketorolac 0.5% OPHTH (NF) 0.5 % 5 ML BTL ONE; +Lidocaine 1%* 5 ML VIAL ONE; +Lidocaine 2% EPI 1:200000 MPF*10-20 ML VIAL ONE; +Neomycin/Polymy/Dex OPTH.SUSP* MAXITROL 0.1% 5 ML ONE; +Phenylephrine 2.5% OPTH.SOL* 2 ML BTL ONE; +Povidone Iodine 5% OPTH* 30 ML BTL ONE; +Proparacaine 0.5% OPHTH.SOL* 15 ML BTL ONE; +acetaZOLAMIDE TAB* 250 MG ONE; -mitoMYcin 0.2 MG (0.02%) in Sterile Water for Inj* 1 ML OPHTHALMIC SCH
[2018-04-22] MEDS ORDERED: Proparacaine 0.5% OPHTH.SOL* 15 ML BTL ONE (11:51)
[2018-04-22] MEDS ORDERED: Sodium Bicarbonate 8.4% SYR* 10 ML SYRINGE ONE (13:40)
[2018-04-22] MEDS ORDERED: Triamcinolone Acetonide* 40 MG/ML 1 ML VIAL ONE (13:40)
[2018-04-22] MEDS ORDERED: Atropine 1% OPHTH.SOL* 2 ML BOT - 2 ML ONE (13:41)
[2018-04-22] MEDS ORDERED: BSS OPTH.SOL* BTL ONE (13:41)
[2018-04-22] MEDS ORDERED: Acetylcholine 1:100 OPTH* OPHTH.SOLN ONE (13:41)
[2018-04-22] MEDS ORDERED: Hyaluronidase OVINE* 200 UNIT/ML ML SUBCUT ONE (13:42)
[2018-04-22] MEDS ORDERED: Lidocaine 2% EPI 1:200000 MPF*10-20 ML VIAL ONE (13:42)
[2018-04-22] MEDS ORDERED: Povidone Iodine 5% OPTH* 30 ML BTL ONE (13:42)
[2018-04-22] MEDS ORDERED: Neomycin/Polymy/Dex OPTH.SUSP* MAXITROL 0.1% 5 ML ONE (13:42)
[2018-04-22] MEDS ORDERED: Bupivacaine 0.25% SDV PF* 10 ML VIAL INJ ONE (13:43)
[2018-04-22] MEDS ORDERED: fentaNYL* 50 MCG/ML 2 ML VIAL (100 MCG VIAL) ONE (13:58)
[2018-04-22] MEDS ORDERED: Midazolam* 1 MG/ML 5 ML VIAL (5 MG) ONE (13:58)
[2018-04-22] MEDS ORDERED: Naloxone* 0.4 MG/ML 1 ML VIAL IV PRN (14:01)
[2018-04-22] MEDS ORDERED: Lidocaine 2% PF * 5 ML VIAL ONE (15:08)
[2018-04-22] MEDS ORDERED: Propofol* 10 MG/ML 20 ML BTL ONE (15:08)
[2018-04-22 15:29] VITALS: BP 117/78
--- NOTE | 2018-04-23 07:22 | OP ---
DATE OF OPERATION: 04/22/[address] - [facility] DATE OF : 62 SURGEON: Ruben Giraldo MD. ANESTHESIA: Local with MAC. PRE-OP DIAGNOSIS: Uncontrolled glaucoma, left eye. POST-OP DIAGNOSIS: Uncontrolled glaucoma, left eye. OPERATIVE PROCEDURE: Trabeculectomy, left eye. COMPLICATIONS: None. DESCRIPTION OF PROCEDURE: The patient was given retrobulbar anesthesia in the operating room, 50:50 mixture of 2% lidocaine with epinephrine and 0.25 Marcaine with Vitrase and bicarb added, 4 cc was given in the muscle cone without difficulty. A fornix-based conjunctival peritomy performed, centered at the 1 o'clock position with Beau scissors. Mitomycin-C 0.2 mg/mL placed subtenon for 90 seconds and thoroughly irrigated. A limbal based, triangular, half-scleral thickness flap centered at 1 o'clock made with a crescent blade and a 75 blade. Anterior chamber entered with a 3-mm keratome. Miochol instilled into the anterior chamber. Some DisCoVisc. A 3x1 mm trabecular block excised using Mable punch and a peripheral iridectomy with Vannas scissors. The scleral flap was sutured with one 10-0 nylon interrupted suture and then the conjunctivae closed using a combination of 10-0 nylon running locking suture at the limbus and 10-0 Vicryl along the edges. Paracentesis made at the 3 o'clock position. BSS inflated the anterior chamber. All wounds were checked, found to be watertight. Topical atropine and Maxitrol were given. Subtenons Kenalog 40 mg/mL 1 mL given inferotemporally. The eye was patched. [id number]/[facility] #: [id number] [facility]
== END 2018-04-22 15:44 | disposition home or self-care (01) ==
LOC: OREAST 11:36
PROVIDERS: ATTEND Specialist
DX: H40.1123 Primary open-angle glaucoma, left eye, severe stage (principal); H40.1113 Primary open-angle glaucoma, right eye, severe stage; H25.813 Combined forms of age-related cataract, bilateral; H35.3131 Nonexudative age-related macular degeneration, bilateral, early dry stage; E11.9 Type 2 diabetes mellitus without complications; Z79.4 Long term (current) use of insulin; I10 Essential (primary) hypertension
CPT/HCPCS: A9270-GY; J2250; J2704; J3010; J3301; J3471; J3490; J9280

== ENCOUNTER 2018-12-16 10:43 | Emergency (ER) | payer BC ==
[2018-12-16] MEDS ORDERED: NS 0.9% 1000 ML** 1,000 ML IV.FLUID IV ONE (12:56)
[2018-12-16] MEDS ORDERED: Lidocaine 2% VISCOUS* 15 ML UDC PO ONE (12:57)
[2018-12-16] MEDS ORDERED: Al Hydrox/Mg Hydrox/Simet LIQ* 30 ML UDC PO ONE (12:57)
[2018-12-16] MEDS ORDERED: Acetaminophen TAB* 325 MG PO ONE (13:11)
[2018-12-16] MEDS ORDERED: Metoclopramide IV* 5 MG/ML 2 ML VIAL IV SLOW PU ONE (13:11)
[2018-12-16 13:29] LABS: ABS Eosinophils 0.1 10^3/ul (0-0.6); ABS Lymphocytes 1.6 10^3/ul (1.0-4.8); ABS Monocytes 0.4 10^3/ul (0-0.8); ABS Neutrophils 3.4 10^3/ul (1.5-7.7); Eosinophil % 2.2 %; Hematocrit 38 % (42-52); Hemoglobin 12.3 g/dL (14.0-18.0); Mean Corpuscular HGB Conc 33 g/dL (31-36); Mean Corpuscular Hemoglobin 27 pg (27-31); Mean Corpuscular Volume 83 fL (80-94); Mean Platelet Volume 8.3 fL (7.4-10.4); Nucleated Red Blood Cells % 0.1; Platelet Count 177 10^3/uL (150-450); Red Blood Count 4.58 10^6 /uL (4.18-5.48); Red Cell Distribution Width 16 % (10-15); White Blood Count 5.7 10^3/uL (3.5-10.8)
--- NOTE | 2018-12-16 13:36 | ED ---
Headache - HPI Summary HPI Summary: Pt is a 58 y/o M presenting to the ED with a chief complaint of a headache. He states he has hx of migraines, he takes a monthly medication as well as Botox treatments for this. Usually has a slight headache almost every day on the frontal part of his head. No visual changes. Headache was gradual in onset. He describes a sharp stabbing pain to his frontal area He also notes he had chest pain onset around 1700 yesterday that is still slightly present described as burning, non-radiating, 2/10 as well as palpitations and nausea. He denies SOB. Notes hx of CT that presented as feeling weird, which he takes daily Aspirin for and that this does not feel similar to that. He follows with a blast furnace keeper helper. - History Of Current Complaint Chief Complaint: EDHeadache Stated Complaint: HEADACHE\/ HEART BURN PER PT Time Seen by Provider: 12/16/18 12:48 Hx Obtained From: Patient Onset/Duration: Gradual Onset, Started hours ago, Still Present Initially Headache Was: Moderate Currently Pain Is: Severe Timing: Constant, Hours Character: Migraine Location of Headache: Frontal Aggravating Factor: Nothing Allevating Factors: Nothing Associated Signs And Symptoms: Nausea - Allergies/Home Medications Allergies/Adverse Reactions: Allergies Allergy/AdvReac Type Severity Reaction Status Date / Time No Known Allergies Allergy Verified 04/22/18 12:04 Home Medications: Home Medications Aspirin EC TAB* [Ecotrin EC Low Dose 81 MG*] 81 mg PO DAILY 12/16/18 [History Confirmed 12/16/18] Brimonidine P 0.15%(NF) [Alphagan P 0.15%(NF)] 1 drop BOTH EYES BID 12/16/18 [ History Confirmed 12/16/18] Erenumab-Aooe [Aimovig Autoinjector] 70 mg SUBCUT MONTHLY 12/16/18 [History Confirmed 12/16/18] Lisinopril TAB* [Prinivil TAB*] 20 mg PO DAILY 12/16/18 [History Confirmed 12/16] Metoprolol Succinate XL TAB* [Toprol XL TAB*] 50 mg PO DAILY 12/16/18 [History Confirmed 12/16/18] Nitroglycerin TAB 0.4 MG* 0.4 mg SL Q5M PRN 12/16/18 [History Confirmed 12/16/18 ] Pioglitazone TAB* [Actos TAB*] 30 mg PO DAILY 12/16/18 [History Confirmed ] Tadalafil [Cialis] 10 - 20 mg PO DAILY PRN 12/16/18 [History Confirmed 12/16/18] PMH/Surg Hx/FS Hx/Imm Hx Previously Healthy: Yes Endocrine/Hematology History: Reports: Hx Diabetes - type 2 Denies: Hx Anticoagulant Therapy, Hx Systemic Lupus Erythematosus, Hx Thyroid Disease Cardiovascular History: Reports: Hx Angina, Hx Coronary Artery Disease - 2 stents, Hx Hypertension - on meds Denies: Hx Pacemaker/ICD, Other Cardiovascular Problems/Disorders Respiratory History: Denies: Hx Asthma, Hx Chronic Obstructive Pulmonary Disease (COPD), Other Respiratory Problems/Disorders GI History: Reports: Hx Ulcer - HX H pylori Denies: Other GI Disorders History: Denies: Hx Dialysis, Hx Renal Disease, Other Problems/Disorders Musculoskeletal History: Reports: Hx Arthritis - left knee,, Hx Orthopedic Injury - bilateral knees, bilateral shoulders Denies: Other Musculoskeletal History Sensory History: Reports: Hx Cataracts - Slight cataract thinks in both eyes, Hx Contacts or Glasses - for driving, Hx Glaucoma - jennie Denies: Hx Hearing Aid Opthamlomology History: Reports: Hx Cataracts - Slight cataract thinks in both eyes, Hx Contacts or Glasses - for driving, Hx Glaucoma - jennie Neurological History: Reports: Hx Headaches, Hx Migraine - FREQUENTLY Denies: Hx Dementia, Hx Seizures, Other Neuro Impairments/Disorders Psychiatric History: Denies: Hx Panic Disorder, Hx Substance Abuse - Cancer History Hx Chemotherapy: No Hx Palliative Cancer Treatment: No - Surgical History Surgery Procedure, Year, and Place: RIGHT SHOULDER 1994, , LEFT SHOULDER 2008 ,RIGHT FOOT ,CARPAL TUNNEL RELEASE RIGHT, 1999 ,RIGHT ELBOW ULNAR NERVE DECOMPRESSION, 1999. RIGHT KNEE, 1999. LEFT KNEE 1976. cardiac stents x2 2013. right total knee, 2017, [facility] Hx Anesthesia Reactions: No Infectious Disease History: No Infectious Disease History: Denies: Hx Hepatitis, Hx Human Immunodeficiency Virus (HIV), History Other Infectious Disease, Traveled Outside the [place] in Last 30 Days - Family History Known Family History: Positive: Hypertension - Social History Alcohol Use: None Hx Substance Use: No Substance Use Type: Reports: None Hx Tobacco Use: Yes Smoking Status (MU): Former Smoker Amount Used/How Often: 1/2 PACK A DAY, smoked since 18 years old Have You Smoked in the Last Year: No Review of Systems Positive: Palpitations, Chest Pain Negative: Shortness Of Breath Positive: Nausea Positive: Headache All Other Systems Reviewed And Are Negative: Yes Physical Exam - Summary Physical Exam Summary: Constitutional: Well-developed, Well-nourished, Alert. (-) Distressed Skin: Warm, Dry HENT: Normocephalic; Atraumatic Eyes: Conjunctiva normal Neck: Musculoskeletal ROM normal neck. (-) JVD Cardio: Rhythm regular, rate normal, Heart sounds normal; Intact distal pulses; Radial pulses are 2+ and symmetric. (-) Murmur Pulmonary/Chest wall: Effort normal. (-) Respiratory distress, (-) Wheezes, (-) Rales Abd: Soft. (-) Tenderness, (-) Distension, (-) Guarding, (-) Rebound Musculoskeletal: (-) Edema Lymph: (-) Cervical adenopathy Neuro: Alert,{ERRL, Oriented x3, Strength normal, Cranial nerves II-XII are grossly intact. SILT, Strength 5/5 BUE and BLE, (-) Dysmetria, (-) Nystagmus, ambulates w steady gait. Psych: Mood and affect Normal Triage Information Reviewed: Yes Vital Signs On Initial Exam: Initial Vitals Temp Pulse Resp BP Pulse Ox 97.8 F 77 18 161/86 96 12/16/18 10:49 12/16/18 10:49 12/16/18 10:49 12/16/18 10:49 12/16/18 10:49 Vital Signs Reviewed: Yes Diagnostics - Vital Signs Vital Signs Temp Pulse Resp BP Pulse Ox 12/16/18 10:49 97.8 F 77 18 161/86 96 - Laboratory Lab Results: Lab Results 12/16/18 Range/Units 13:21 WBC 5.7 (3.5-10.8) 10^3/uL RBC 4.58 (4.18-5.48) 10^6 /uL Hgb 12.3 L (14.0-18.0) g/dL Hct 38 L (42-52) % MCV 83 (80-94) fL MCH 27 (27-31) pg MCHC 33 (31-36) g/dL RDW 16 H (10-15) % Plt Count 177 (150-450) 10^3/uL MPV 8.3 (7.4-10.4) fL Neut % (Auto) 60.3 % Lymph % (Auto) 29.0 % Moore % (Auto) 7.9 % Eos % (Auto) 2.2 % Baso % (Auto) 0.6 % Absolute Neuts (auto) 3.4 (1.5-7.7) 10^3/ul Absolute Lymphs (auto) 1.6 (1.0-4.8) 10^3/ul Absolute Monos (auto) 0.4 (0-0.8) 10^3/ul Absolute Eos (auto) 0.1 (0-0.6) 10^3/ul Absolute Basos (auto) 0.0 (0-0.2) 10^3/ul Absolute Nucleated RBC 0.0 10^3/ul Nucleated RBC % 0.1 Result Diagrams: 12/16/18 13:21 12/16/18 13:21 Lab Statement: Any lab studies that have been ordered have been reviewed, and results considered in the medical decision making process. - Radiology CXR Radiology Interpretation Completed By: Radiologist Summary of Radiographic Findings: No active cardiopulmonary disease is noted. ED physician has reviewed this report. - EKG 1058 Cardiac Rate: NL - 74bpm EKG Rhythm: Sinus Rhythm ST Segment: Normal Ectopy: None Summary of EKG Findings: An EKG at 1058 shows NSR at 74bpm with T wave inversions in lead I, II, v5, v6, and aVL, with nml axis and nml intervals. Improved from 04/27/2015. No STEMI. No acute changes. Re-Evaluation - Re-Evaluation 1st re-eval Re-Evaluation Time: 17:36 Change: Improved Comment: Pt's troponin is negative 2. Chest pain resolved, patient states the headache has improved Headache Course/Dx - Course Course Of Treatment: 58-year-old male with a history of hyperlipidemia hypertension diabetes CT (s/p PCI to LAD and Circ 2014) who presents with CP and headache. This is a patient who presents with headache. History of headaches of similar type. This is not the worst headache patient has had, and no additional features today to suggest need for further workup on a truly emergent basis (imaging, LP, etc). Will try IVF, tylenol, reglan and reassess. Chest Pain DDX: The patient is well appearing, with stable vitals. Given the patient's clinical presentation, highest on differential is atypical CP. Although less likely, differential also includes the following: --Pneumothorax : Equal breath sounds, story inconsistent since gradual onset of symptoms. CXR shows no evidence of pneumothorax. Unlikely. --Cardiac tamponade: The history and physical are not concerning for tamponade. No Pulsus Paradoxus, no tachypnea. Unlikely. --Mediastinitis or esophageal rupture: The history is not consistent, as the patient has had no recent history of significant wretching, instrumentation, or mediastinal surgeries. Unlikely. --Aortic dissection: The patient does not describe the classical tearing chest pain radiating into the back, and the CXR does not show mediastinal widening or other signs of aortic dissection. Unlikely. --PE: Vitals wnl (not hypoxic, tachycardic or tachypneic) . --ACS: The initial EKG shows no ischemic changes. The initial troponin is not elevated x2. - Diagnoses Provider Diagnoses: Migraine, Chest pain Discharge - Sign-Out/Discharge Documenting (check all that apply): Patient Departure Patient Received Moderate/Deep Sedation with Procedure: No - Discharge Plan Condition: Stable Disposition: HOME Patient Education Materials: Chest Pain (ED) Referrals: Jose Ford MD [Primary Care Provider] - Additional Instructions: You were seen in the emergency department for a migraine and chest pain. Follow -up with your blast furnace keeper helper within the next week as well as your primary care doctor in the next 2-3 days. Return for worsening symptoms including chest pain , trouble breathing, worsening headaches, nausea, vomiting or fever or if you are concerned. - Billing Disposition and Condition Condition: STABLE Disposition: Home - Attestation Statements Document Initiated by Richa: Yes Documenting Scribe: Yarely Simon Provider For Whom Richa is Documenting (Include Credential): Beverly Islas MD. Scribe Attestation: Yarely Perkins, scribed for Beverly Islas MD. on 12/16/18 at 1955. Scribe Documentation Reviewed: Yes Provider Attestation: The documentation as recorded by the Yarely diamond accurately reflects the service I personally performed and the decisions made by me, Beverly Islas MD. Status of Scribe Document: Viewed
[2018-12-16 13:48] LABS: Albumin 3.7 g/dL (3.2-5.2); BUN/Creatinine Ratio 19.4 (8-20); Calcium 8.9 mg/dL (8.6-10.3); EGFR African American 66.5 (>60); EGFR Non-African American 54.9 (>60); Globulin 3.6 g/dL (2-4); Total Bilirubin 0.5 mg/dL (0.2-1.0); Total Protein 7.3 g/dL (6.4-8.9)
[2018-12-16 13:49] LABS: Troponin I 0.01 ng/mL (<0.04)
[2018-12-16 17:56] VITALS: BP 149/91
== END 2018-12-16 17:55 | disposition home or self-care (01) ==
LOC: ED 10:43
DX: G43.909 Migraine, unspecified, not intractable, without status migrainosus (principal); R07.9 Chest pain, unspecified; Z79.82 Long term (current) use of aspirin; Z79.899 Other long term (current) drug therapy; E11.9 Type 2 diabetes mellitus without complications; I25.119 Atherosclerotic heart disease of native coronary artery with unspecified angina pectoris; I10 Essential (primary) hypertension; Z95.5 Presence of coronary angioplasty implant and graft; Z87.891 Personal history of nicotine dependence
CPT/HCPCS: 36415; 71045; 80053; 83605; 84484; 85025; 93005; 96361; 96374; 99284; A9270-GY; J2765

== ENCOUNTER 2019-05-05 09:18 | Emergency (ER) | payer BC ==
--- OUTSIDE RECORDS SUMMARY | 2019-05-05 09:36 | XMS REPORT | Continuity of Care Document ---
:1960 External Reference #:[id number] Author Name Ruben Giraldo M.D. Address [address] [place] [address] Care Team Providers Name Role Phone Jose Ford M.D. - Family Medicine Care Team Information Hand [employer] M[employer] Problems Active Problems Provider Date Essential hypertension Milagros Manzanares O.D. Onset: 01/24/2015 Edema Milagros Manzanares O.D. Onset: 01/24/2015 Migraine Milagros Manzanares O.D. Onset: 01/24/2015 Type 2 diabetes mellitus Milagros Manzanares O.D. Onset: 01/25/2015 Note: 1998 Primary open angle glaucoma Milagros Manzanares O.D. Onset: 02/15/2015 Nonexudative age-related macular Milagros Manzanares O.D. Onset: 02/15/2015 degeneration Nuclear senile cataract Milagros Manzanares O.D. Onset: 02/15/2015 Myopia Milagros Manzanares O.D. Onset: 02/15/2015 Presbyopia Milagros Manzanares O.D. Onset: 02/15/2015 Severe / Advanced / End Stage Glaucoma Milagros Manzanares O.D. Onset: 2014 Combined form of senile cataract Milagros Manzanares O.D. Onset: 02/07/2016 Bilateral primary open angle glaucoma Dora Jackson O.D. Onset: 2016 Bilateral age-related nonexudative macular Dora Jacksno O.D. Onset: degeneration Social History Type Date Description Comments Sex Unknown ETOH Use Denies alcohol use Tobacco Use Start: Unknown Patient has never smoked Recreational Drug Use Denies Drug Use Smoking Status Reviewed: 04/29/19 Patient has never smoked Allergies, Adverse Reactions, Alerts Description No Known Drug Allergies Medications Active Medications SIG Qnty Indications Ordering Date Provider Latanoprost 1 drop both eyes 7.5ml H40.1133 Ruben Giraldo, 05/28/2018 0.005% every night M.DPark Solution Lantus Solostar Inject 30 Units Unknown Subqutaneous Every 100Unit/ML Solution AT Bedtime Pen-Inject Oxycodone-Acetaminop Take 1 Tablet By Unknown hen Mouth 3 Times A Day 10-325mg Tablets as Needed Aspir-[address] Glipizide Unknown 5mg Tablets Lisinopril Unknown 20mg Tablets Lipitor Unknown 20mg Tablets Immunizations Description No Information Available Vital Signs Description No Information Available Results Description No Information Available Procedures Date Code Description Status 01/19/2019 46242 Scanning Computerized Ophthalmic Diagnostic Imag Posterior Completed Seg On 01/19/2019 59421 Visual Field Exam Extended Completed 01/19/2019 43171 Est Patient Intermediate Exam Completed Medical Devices Description No Information Available Encounters Description No Information Available Assessments Date Code Description Provider 04/29/2019 H40.1133 Primary open-angle glaucoma, bilateral, Ruben Giraldo M.D. severe stage 04/29/2019 E11.9 Type 2 diabetes mellitus without Ruben Giraldo M.D. complications 04/29/2019 H25.813 Combined forms of age-related cataract, Ruben Giraldo M.D. bilateral 01/19/2019 H40.1133 Primary open-angle glaucoma, bilateral, Ruben Giraldo M.D. severe stage 01/19/2019 E11.9 Type 2 diabetes mellitus without Ruben Giraldo M.D. complications 01/19/2019 H25.813 Combined forms of age-related cataract, Ruben Giraldo M.D. bilateral Plan of Treatment 04/29/2019 - Ruben J. Arleo, M.D.H40.1133 Primary open-angle glaucoma, bilateral, severe stageComments:Smoking can increase the risk of developing or worsening any eye related disease, as well as affect your overall health. If you are a smoker, we strongly recommend that you quit.If you are not a smoker, we strongly recommend that you do not start. Your glaucoma is stable at this time.Your eye pressure is within an acceptable range, and your testing does not show any further deterioration at this time. Please continue your treatment.Follow up:3 Month Follow Up IOP Check Visual Field, Central 10 OU At your next visit, we are not planning to dilate your eyes. However, if you have any changes in your vision or new symptoms, there are certain situations that require us to dilate your eyes. If Dr. Giraldo requests any additional testing, that may require extra time. If you have any questions before your next appointment, please call our office at .E11.9 Type 2 diabetes mellitus without complicationsComments:You have diabetes. I do not detect any changes in both of your retinas from diabetes at this time. Proper control of your diabetes is important for the health of your eyes. Changes in your eyes from diabetes can happen without symptoms, so it is important that you have your eyes examined. Dr. Giraldo has sent a report to your primary care doctor, letting them know there is no damage from the Diabetes in your eyes.H25.813 Combined forms of age-related cataract, bilateralComments:You have been diagnosed with cataracts. If you are happy with your vision as it is now, then we willsee you at your next scheduled appointment. If you feel like your vision is getting worse before your scheduled appointment, please call Jeniffer or Mandy at [phone]. Functional Status Description No Information Available Mental Status Description No Information Available Referrals Description No Information Available
[2019-05-05 11:59] VITALS: BP 137/76
== END 2019-05-05 12:33 | disposition left against medical advice (07) ==
LOC: ED 09:18
DX: Z53.21 Procedure and treatment not carried out due to patient leaving prior to being seen by health care provider (principal); G43.909 Migraine, unspecified, not intractable, without status migrainosus
CPT/HCPCS: 99281

== ENCOUNTER 2020-07-05 09:24 | Observation (INO) ==
[2020-07-05] MEDS ORDERED: Nitro 2% OINT (Nitroglycerin) 1 INCH/PAK TOPICAL ONE (10:26)
[2020-07-05] MEDS ORDERED: NS 0.9% 1000 ml BAG 1,000 ML IV SCH (10:30)
[2020-07-05 10:43] LABS: ABS Eosinophils 0.1 10^3/ul (0-0.6); ABS Lymphocytes 1.4 10^3/ul (1.0-4.8); ABS Monocytes 0.4 10^3/ul (0-0.8); ABS Neutrophils 3.9 10^3/ul (1.5-7.7); Eosinophil % 2.3 %; Hematocrit 41 % (42-52); Hemoglobin 13.6 g/dL (14.0-18.0); Lymphocyte % 23.8 %; Mean Corpuscular HGB Conc 33 g/dL (31-36); Mean Corpuscular Hemoglobin 27 pg (27-31); Mean Corpuscular Volume 82 fL (80-94); Mean Platelet Volume 8.4 fL (7.4-10.4); Nucleated Red Blood Cells % 0.1; Platelet Count 167 10^3/uL (150-450); Red Cell Distribution Width 15 % (10-15); White Blood Count 5.9 10^3/uL (3.5-10.8)
[2020-07-05 11:01] LABS: ALT 24 U/L (7-52); Albumin 3.9 g/dL (3.2-5.2); Albumin/Globulin Ratio 1.1 (1-3); Alkaline Phosphatase 49 U/L (34-104); BUN/Creatinine Ratio 22.6 (8-20); Blood Urea Nitrogen 50 mg/dL (6-24); CO2 Carbon Dioxide 25 mmol/L (22-32); Calcium 8.9 mg/dL (8.6-10.3); Chloride 101 mmol/L (101-111); EGFR African American 37.1 (>60); EGFR Non-African American 30.6 (>60); Globulin 3.7 g/dL (2-4); Glucose 216 mg/dL (70-100); Sodium 132 mmol/L (135-145); Total Protein 7.6 g/dL (6.4-8.9)
[2020-07-05] MEDS ORDERED: Iodixanol (CONTRAST) 320 MG/ML 100 ML SDV IV ONE (11:12)
[2020-07-05 11:14] LABS: Anion Gap 6 mmol/L (2-11); Troponin I 0.03 ng/mL (<0.03)
[2020-07-05] MEDS ORDERED: Al Hydrox/Mg Hydrox/Simet LIQ 30 ML UDC PO PRN (12:50)
[2020-07-05] MEDS ORDERED: Dextrose 50% Syringe 50 ml 25 GM/50 ML SYRINGE IV PUSH PRN (12:52)
[2020-07-05 13:30] LABS: Troponin I 0.03 ng/mL (<0.03)
[2020-07-05] MEDS: oxyCODONE/Acetamin 5/325 mg TAB PO PRN ×2 (15:40→23:05)
[2020-07-05] MEDS: NS 0.9% 1000 ml BAG 1,000 ML IV SCH ×2 (16:05→23:01)
[2020-07-05 17:56] LABS: Troponin I 0.03 ng/mL (<0.03)
[2020-07-05] MEDS ORDERED: Insulin GLARGINE 100 un/ml 10 ml VIAL SUBCUT SCH (21:00)
[2020-07-05] MEDS: Heparin 5000 UNITS/ML 1 mL VIAL SUBCUT SCH (21:43)
[2020-07-05 23:26] LABS: Urine Appearance Clear; Urine Bilirubin Negative (Negative); Urine Blood Negative (Negative); Urine Color Straw; Urine Glucose 3+(>=500 mg/dL) (Negative); Urine Ketones Negative (Negative); Urine Nitrite Negative (Negative); Urine Protein Negative (Negative); Urine Specific Gravity 1.018 (1.010-1.030); Urine Urobilinogen Negative (Negative)
[2020-07-06] MEDS: NS 0.9% 1000 ml BAG 1,000 ML IV SCH (04:48)
[2020-07-06] MEDS: Heparin 5000 UNITS/ML 1 mL VIAL SUBCUT SCH ×2 (05:30→13:54)
[2020-07-06 06:53] LABS: ABS Eosinophils 0.2 10^3/ul (0-0.6); ABS Lymphocytes 1.8 10^3/ul (1.0-4.8); ABS Monocytes 0.5 10^3/ul (0-0.8); ABS Neutrophils 2.5 10^3/ul (1.5-7.7); Eosinophil % 3.1 %; Hematocrit 39 % (42-52); Hemoglobin 12.6 g/dL (14.0-18.0); Lymphocyte % 35.9 %; Mean Corpuscular HGB Conc 33 g/dL (31-36); Mean Corpuscular Hemoglobin 27 pg (27-31); Mean Corpuscular Volume 84 fL (80-94); Mean Platelet Volume 8.6 fL (7.4-10.4); Platelet Count 154 10^3/uL (150-450); Red Blood Count 4.62 10^6 /uL (4.18-5.48); Red Cell Distribution Width 15 % (10-15); White Blood Count 4.9 10^3/uL (3.5-10.8)
[2020-07-06 07:07] LABS: BUN/Creatinine Ratio 21.6 (8-20); Calcium 8.2 mg/dL (8.6-10.3); EGFR African American 51.2 (>60); EGFR Non-African American 42.3 (>60); Potassium 4.3 mmol/L (3.5-5.0)
[2020-07-06] MEDS ORDERED: Olmesartan 20 mg TAB (NF) PO SCH (09:00)
[2020-07-06] MEDS ORDERED: Aspirin EC 81 mg TAB.EC (enteric coated) PO SCH (09:00)
[2020-07-06] MEDS ORDERED: Iodixanol (CONTRAST) 320 MG/ML 100 ML SDV IV ONE (09:16)
[2020-07-06 10:04] LABS: HDL Cholesterol 27.1 mg/dL
[2020-07-06] MEDS ORDERED: Perflutren Lipid Microsphere 3 ML VIAL ONE (12:09)
[2020-07-06] MEDS ORDERED: NS 0.9% 1000 ml BAG 1,000 ML IV SCH (13:30)
[2020-07-06] MEDS ORDERED: Regadenoson 0.4 MG/5 ML SYRINGE ONE (13:38)
[2020-07-06] MEDS ORDERED: Aminophylline 25 MG/ML VIAL ONE (13:38)
[2020-07-06 15:03] LABS: Troponin I 0.02 ng/mL (<0.03)
[2020-07-06 15:04] VITALS: BP 153/80
== END 2020-07-06 17:15 | disposition home or self-care (01) ==
LOC: ED 09:24 → MED 09:24
PROVIDERS: ADMIT Internal Medicine; ATTEND Internal Medicine